=== PATIENT | female | born 1975 | race Caucasian/White ===

== ENCOUNTER → 2020-12-12 10:26 | Outpatient (CLI) | payer BC, SELFPAY ==
--- NOTE | ~2020-12-12 | XR_ITS ---
XR UGIAC wo kub DATE: 12/12/2020 11:26 INDICATION: Gastroesophageal reflux. Epigastric pain. TECHNIQUE: Air-contrast (series 1.7 minutes fluoroscopy time 12.323 DAP 90 images COMPARISON: None FINDINGS: There is mild gastroesophageal reflux. There is normal deglutition and esophageal peristal sis. No stricture, mucosal fold thickening, erosion or ulceration or intraluminal mass lesion of the esophagus, stomach or duodenum. Normal small bowel mucosal pattern. Status post cholecystectomy. IMPRESSION: Mild gastroesophageal reflux Status post cholecystectomy Reviewed, dictated and finalized at [facility]. Reviewed, dictated and finalized at location [facility].
--- NOTE | ~2020-12-12 | MM_ITS ---
EXAMINATION: MM screening josette BI w jos HISTORY: Screening TECHNIQUE: Craniocaudal and mediolateral oblique 3-D tomosynthesis images were obtained and synthetic 2-D images were generated. CAD analysis was submitted and interpreted. COMPARISON: 10/09/2016 BREAST PARENCHYMAL COMPOSITION: The breasts are heterogeneously dense, which may obscure small masses . FINDINGS: There is no evidence of suspicious mass, calcification, or architectural distortion to sugg est malignancy in either breast. There has been no suspicious interval change. IMPRESSION: 1. No mammographic evidence of malignancy. 2. Recommend routine screening mammography in one year. BI-RADS Category 1: Negative Reviewed, dictated and finalized at location A.
== END ==
PROVIDERS: PCP Physician Assistant; Visit Provider Physician Assistant
DX: Z12.31 Encounter for screening mammogram for malignant neoplasm of breast (principal); K21.9 Gastro-esophageal reflux disease without esophagitis; Z90.49 Acquired absence of other specified parts of digestive tract
CPT/HCPCS: 74246; 77063; 77067

== ENCOUNTER → 2021-08-06 10:44 | Outpatient (CLI) | payer BC, SELFPAY ==
--- NOTE | ~2021-08-06 | US_ITS ---
EXAMINATION: XR tibia fibula LT 2V, US soft tissue LE LT DATE: 08/06/2021 11:16 INDICATION: Soft tissue disorder with indention and discoloration at the left lower leg. TECHNIQUE: 1. Anteroposterior and lateral views of the left tibia and fibula were obtained. 2. Grayscale and color Doppler ultrasound images of the region of concern at the lateral left lower l eg were obtained. COMPARISON: None. FINDINGS: Radiograph: Bone alignment is normal. No fracture. Joint spaces are normal. No suspicious lytic or blastic bone l esions. Soft tissues are unremarkable. ULTRASOUND: A couple 2-3 mm anechoic lesions in the subcutaneous fat at the region of concern. On cine images the se appear to be contiguous with several small hypoechoic tubular structures most likely representing vessels although differential would include nerves. No evident internal vascular flow within the cyst ic lesions on color Doppler. The surrounding subcutaneous fat and underlying musculature are unremark able. No abnormal masses or fluid collections identified. IMPRESSION: 1. Nonspecific 2-3 mm anechoic lesions in the subcutaneous fat the region of concern which could repr esent nonspecific cysts, focally dilated veins, either thrombosed or with slow flow indiscernible on Doppler imaging or less likely schwannoma/peripheral nerve sheath tumors. 2. No osseous abnormality. Reviewed, dictated and finalized at location A. IMPRESSION: 1. Nonspecific 2-3 mm anechoic lesions in the subcutaneous fat the region of co ncern which could represent nonspecific cysts, focally dilated veins, either th rombosed or with slow flow indiscernible on Doppler imaging or less likely schw annoma/peripheral nerve sheath tumors. 2. No osseous abnormality.
== END ==
PROVIDERS: PCP Physician Assistant; Visit Provider Physician Assistant
DX: M79.9 Soft tissue disorder, unspecified (principal)
CPT/HCPCS: 73590; 76882

== ENCOUNTER → 2021-08-16 09:02 | Outpatient (CLI) | payer BC, SELFPAY ==
--- NOTE | ~2021-08-16 | MR_ITS ---
EXAMINATION: MR lower leg LT wo/w con DATE: 08/16/2021 10:22 INDICATION: Disorder soft tissues of the left lower leg with soft tissue indentation and discoloratio n. TECHNIQUE: Magnetic resonance imaging (MRI) of the left lower leg was performed without and with 13 m L Multihance intravenous contrast. A marker was placed over the mass. Sequences included axial, sagi ttal and coronal T1-weighted FSE and fluid sensitive FSE STIR, axial T1-weighted FS FSE. Post contras t axial, sagittal and coronal T1-weighted FS FSE were also obtained. The contralateral right lower le g is included on the coronal images. COMPARISON: Ultrasound dated 07/29/2021 FINDINGS: Bones are normal with normal marrow signal throughout. No asymmetric atrophy or abnormal muscle signa l at the bilateral calves. Small region with subtle very fine reticular pattern in the subcutaneous f at immediately underlying the marker indicating the region of concern which is best appreciated on th e T1-weighted images with some associated increased signal on T2-weighted postcontrast images most li gabo representing a tiny vessels in otherwise normal-appearing subcutaneous fat. No soft tissue disha s or more solid-appearing nodular/mass like enhancement. No abnormal fluid collections. IMPRESSION: 1. Nonspecific small region with some increased prominence of tiny vessels in the subcutaneous fat at the region of concern. This could reflect hyperemia related to inflammation of indeterminate etiolog y versus less likely a vascular malformation. No fluid collections or soft tissue nodules/nodular enh ancement to suggest neoplasm. Reviewed, dictated and finalized at location B. IMPRESSION: 1. Nonspecific small region with some increased prominence of tiny vessels in t he subcutaneous fat at the region of concern. This could reflect hyperemia rela constance to inflammation of indeterminate etiology versus less likely a vascular mal formation. No fluid collections or soft tissue nodules/nodular enhancement to s uggest neoplasm.
[2021-08-16 09:53] LABS: Estimated Glomerular Filt Rate > 60
== END ==
PROVIDERS: PCP Physician Assistant; Visit Provider Physician Assistant
DX: M79.9 Soft tissue disorder, unspecified (principal)
CPT/HCPCS: 73720; A9577

== ENCOUNTER 2022-02-25 03:00 | Day surgery (SDC) | payer BC, SELFPAY ==
[2022-02-13 15:00] VITALS: BMI 24.1
--- NOTE | 2022-02-25 10:48 | WPDANESEPPF ---
Anes - Initial Pre Proc Eval Procedure: Operation Date: 02/25/22 13:00 Proposed Procedures p Colonoscopy - Janusz Brice MD Date/Time: 02/25/22 10:48 Surgeon: Janusz Brice MD Pre Op Diagnosis: diarrhea Patient Data Age: 46 Gender: F Height: 1.65 m Weight: 65.9 kg Allergies Allergy/AdvReac Type Severity Reaction Status Date / Time cat dander Allergy Unknown Unknown Verified 02/25/22 11:55 dog dander Allergy Unknown Unknown Verified 02/25/22 11:55 nickel Allergy Unknown Unknown Verified 02/25/22 11:55 pollen extracts Allergy Unknown Unknown Verified 02/25/22 11:55 Home Medications Medication Instructions Recorded Confirmed Type levocetirizine 5 mg tablet (Xyzal) 5 mg PO DAILY 09/17/21 02/13/22 History valacyclovir 1 gram tablet 1,000 mg PO DAILY PRN Cold Sores 02/13/22 02/13/22 History Patient hx anesthesia problems: none Family hx anesthesia problems: none Results Review: All pre-operative results and documents have been reviewed as part of the pre-operative evaluation. [facility] Past Medical History Medical History Asthma Surgical History Surgical History History of appendectomy History of delivery History of cholecystectomy Family History Family History Father Hypertension Grandparent Acute myocardial infarction Cerebrovascular accident Social History Social History Years smoked: 20 Smoking status: Current every day smoker Tobacco type: cigarettes Alcohol intake: current Alcohol use details: 1 bottle of wine per week Substance use: never Substance use type: does not use Living arrangements: with family Spiritual care concerns: No Anes - Eval Final PreProcedure Day of Procedure 02/25/22 10:48 Patient weight: normal Heart: regular rate and rhythm Lungs: clear to auscultation and normal air movement Airway: Mallampati scale class II Neurological: alert and oriented Last oral intake: >/= 8 hours ASA classification: II Emergent: no Anesthetic plan: proceed Anesthesia type and monitoring: general GIVS and standard monitoring Results Review: All pre-operative results and documents have been reviewed as part of the pre-operative evaluation. Informed Consent: The patient's anesthetic plan and its attendant risks and benefits were discussed with the patient/family/POA. Questions were solicited and answers provided to the satisfaction of the patient/family/POA.
[2022-02-25 11:57] VITALS: BP 108/67; PULSE 61; RESP 18; TEMP 36.1; O2SAT 99
[2022-02-25] MEDS: LACTATED RINGERS 1,000 ML 150 ML IV CONT (12:08)
--- NOTE | 2022-02-25 12:18 | PM.HPGS ---
History of Present Illness History of Present Illness Consent: Risks, benefits, and alternatives have been discussed and questions answered. Patient agrees to proceed with procedure. Chief complaint: diarrhea Narrative: Cindy Sierra is a 46 year old female Patient referred for colonoscopy. Patient states she has had diarrhea for many years. Previous workup not available for review. She states that she recently had stool cultures. These are not available for review. Patient denies any blood in her stools. She has no diarrhea at night. She has occasional abdominal cramping that is associated with her diarrhea. She has no fevers. She has had no recent travel. She states stools are loose. Only time she has normal stools is if she eats poorly. She does eat salads rather frequently. Family history noncontributory. Patient has tried no specific medical therapy to help with her diarrhea. Review of Systems Review of Systems: Review of systems noncontributory. [facility] Past Medical History Medical History Asthma Surgical History Surgical History History of appendectomy History of delivery History of cholecystectomy Family History Family History Father Hypertension Grandparent Acute myocardial infarction Cerebrovascular accident Social History Social History Years smoked: 20 Smoking status: Current every day smoker Tobacco type: cigarettes Alcohol intake: current Alcohol use details: 1 bottle of wine per week Substance use: never Substance use type: does not use Living arrangements: with family Spiritual care concerns: No Meds Home Medications and Allergies Home Medications Medication Instructions Recorded Confirmed Type levocetirizine 5 mg tablet (Xyzal) 5 mg PO DAILY 09/17/21 02/13/22 History valacyclovir 1 gram tablet 1,000 mg PO DAILY PRN Cold Sores 02/13/22 02/13/22 History Allergies Allergy/AdvReac Type Severity Reaction Status Date / Time cat dander Allergy Unknown Unknown Verified 02/25/22 11:55 dog dander Allergy Unknown Unknown Verified 02/25/22 11:55 nickel Allergy Unknown Unknown Verified 02/25/22 11:55 pollen extracts Allergy Unknown Unknown Verified 02/25/22 11:55 Vital Signs Vital Signs - 24 hr 02/25/22 11:57 Temperature 97 F L Pulse Rate 61 Respiratory Rate 18 Blood Pressure 108/67 Pulse Oximetry 99 Oxygen Delivery Room Air Exam Narrative: Physical exam reveals patient to be alert. Vital signs stable. HEENT exam is unremarkable. Patient is anicteric. Lungs are clear to auscultation and percussion. Heart is without murmur or extra sounds. Abdomen bowel sounds are present soft nontender with no organomegaly. Digital external rectal exam is normal. Assessment and Plan Assessment and plan (1) Diarrhea: Code(s): R19.7 - Diarrhea, unspecified Status: Acute Assessment and Plan: Patient complains of chronic diarrhea. The etiology is unclear. Not yet totally evaluated. Irritable bowel syndrome it has been suspected. Stool cultures apparently are in progress. Colonoscopy requested. Colonoscopy will be performed today. High-fiber diet advised. Fiber supplementation such as FiberCon 2 tabs p.o. b.i.d. may be of benefit. Further recommendations may be given after endoscopy and review of cultures.
[2022-02-25 13:09] VITALS: BP 100/64; PULSE 57; RESP 21; O2SAT 100
[2022-02-25 13:19] VITALS: BP 85/49; PULSE 59; RESP 22; O2SAT 100
[2022-02-25 13:29] VITALS: BP 106/75; PULSE 57; RESP 15; O2SAT 100
== END 2022-02-25 13:40 | disposition home or self-care (01) ==
PROVIDERS: PCP Physician Assistant; Visit Provider Internal Medicine Gastroenterology
PROC: 0DJD8ZZ Inspection of Lower Intestinal Tract, Via Natural or Artificial Opening Endoscopic (ICD-10-PCS; CPT 45378; principal; 2022-02-25 13:00)
DX: R19.7 Diarrhea, unspecified (principal); K64.8 Other hemorrhoids; J45.909 Unspecified asthma, uncomplicated; Z90.49 Acquired absence of other specified parts of digestive tract; F17.210 Nicotine dependence, cigarettes, uncomplicated
CPT/HCPCS: 45380; 88305; J2704; J7120

== ENCOUNTER → 2023-05-22 15:15 | Outpatient (CLI) | payer BC, SELFPAY ==
--- NOTE | ~2023-05-22 | MM_ITS ---
EXAMINATION: MM screening josette BI w jos HISTORY: Screening mammogram TECHNIQUE: Craniocaudal and mediolateral oblique 3-D tomosynthesis images were obtained and synthetic 2-D images were generated. CAD analysis was submitted and interpreted. COMPARISON: 12/12/2020, 10/09/2016 BREAST PARENCHYMAL COMPOSITION: The breasts are heterogeneously dense, which may obscure small masses . FINDINGS: RIGHT BREAST: No suspicious mass, calcification, or architectural distortion are identified to sugges t malignancy. There has been no suspicious interval change. LEFT BREAST: There is a possible obscured mass in the middle third of the outer breast approximately 4 cm from the nipple. In addition, an asymmetry is present in the far posterior third of the breast j ust below the nipple axis on the mediolateral oblique view. IMPRESSION: 1. Left breast findings as above. 2. Additional mammographic views and possible breast ultrasound are recommended. BI-RADS Category 0: Incomplete: Needs additional imaging evaluation. Reviewed, dictated and finalized at location A. [employer]IC[employer] IMPRESSION: 1. Left breast findings as above. 2. Additional mammographic views and possible breast ultrasound are recommended . BI-RADS Category 0: Incomplete: Needs additional imaging evaluation.
== END ==
PROVIDERS: PCP Physician Assistant; Visit Provider Physician Assistant
DX: Z12.31 Encounter for screening mammogram for malignant neoplasm of breast (principal); R92.8 Other abnormal and inconclusive findings on diagnostic imaging of breast
CPT/HCPCS: 77063; 77067

== ENCOUNTER → 2023-06-09 08:45 | Outpatient (CLI) | payer BC, SELFPAY ==
--- NOTE | ~2023-06-09 | MMUS_ITS ---
EXAMINATION: MM diagnostic josette LT w jos, US breast LT limited HISTORY: Follow-up left breast mass TECHNIQUE: Additional 3-D tomosynthesis images of the left breast were performed and synthetic 2-D im ages were generated. CAD analysis was submitted and interpreted. High resolution Limited left breast ultrasound was performed. COMPARISON: 05/22/2023 BREAST PARENCHYMAL COMPOSITION: The breasts are heterogeneously dense, which may obscure small masses . FINDINGS: MAMMOGRAPHIC FINDINGS: There is a mass in the upper outer quadrant of the left breast, middle third, partially obscured by f ibroglandular tissue. There are no suspicious calcifications or architectural distortion. ULTRASOUND: Limited left breast ultrasound: There are multiple simple cyst of the left breast, largest of which m easures 2.5 cm corresponding to the mass seen on mammography, located at 2:00, 4 cm from the nipple. No suspicious sonographic abnormalities to suggest malignancy. IMPRESSION: 1. No evidence for malignancy in the left breast. Benign findings. 2. Routine yearly screening mammogram and regular clinical breast examination are recommended. BI-RADS Category 2: Benign finding(s). Reviewed, dictated and finalized at location A. [employer]ER IMPRESSION: 1. No evidence for malignancy in the left breast. Benign findings. 2. Routine yearly screening mammogram and regular clinical breast examination a re recommended. BI-RADS Category 2: Benign finding(s).
== END ==
PROVIDERS: PCP Physician Assistant; Visit Provider Physician Assistant
DX: R92.8 Other abnormal and inconclusive findings on diagnostic imaging of breast (principal)
CPT/HCPCS: 76642; 77061; 77065; G0279

== ENCOUNTER 2024-09-27 12:19 | Outpatient (CLI) | payer BC, SELFPAY ==
--- NOTE | ~2024-09-27 | MM_ITS ---
EXAMINATION: MM screening josette BI w jos HISTORY: Screening TECHNIQUE: Craniocaudal and mediolateral oblique 3-D tomosynthesis images were obtained and synthetic 2-D images were generated. CAD analysis was submitted and interpreted. COMPARISON: Comparison to multiple prior studies sequentially, with oldest reviewed study dated 10/09. BREAST PARENCHYMAL COMPOSITION: Dense: The breasts are heterogeneously dense, which may obscure small masses FINDINGS: There are new bilateral breast masses which are of scattered by fibroglandular tissue. Ther e are no suspicious calcifications or architectural distortion. IMPRESSION: 1. New bilateral breast masses. 2. Additional mammographic views and possible breast ultrasound are recommended. BI-RADS Category 0: Incomplete: Needs additional imaging evaluation. Reviewed, dictated and finalized at location B. IMPRESSION: 1. New bilateral breast masses. 2. Additional mammographic views and possible breast ultrasound are recommended . BI-RADS Category 0: Incomplete: Needs additional imaging evaluation.
== END 2024-09-27 12:20 | disposition home or self-care (01) ==
LOC: MICIMG 12:20
PROVIDERS: PCP Physician Assistant; Visit Provider Physician Assistant
DX: Z12.31 Encounter for screening mammogram for malignant neoplasm of breast (principal); R92.8 Other abnormal and inconclusive findings on diagnostic imaging of breast
CPT/HCPCS: 77063; 77067

== ENCOUNTER 2024-10-07 03:24 | Day surgery (SDC) | payer BC, SELFPAY ==
[2024-09-28 15:17] VITALS: BMI 25.0
--- OUTSIDE RECORDS SUMMARY | 2024-10-07 03:27 | XMS_ITS | Data Portability ---
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 Not available 11/27/2023 11:59:56 Plan of Treatment Reminders Order Date Submit Date Provider Last Modified By Organization Details Last Modified Time Details Appointments ANNUAL 30 2025 11:00A M SHEYLA Blanco Not available Not available Not available Lab TSH + free T4, serum 2024 025 [facility], [address], [place], [address], 08/25/2024 11:13:57 lipid panel, serum 2024 025 [facility], [address], [place], [address], 08/25/2024 11:13:58 CMP, serum or plasma 2024 025 [facility], [address], [place], [address], 08/25/2024 11:13:58 CBC w/ auto diff 2024 025 [facility], [address], [place], [address], 08/25/2024 11:13:58 HbA1c (hemoglo bin A1c), blood 2024 025 [email or web address], [address], [address], [place], [address], 08/25/2024 11:13:57 TSH + free T4, serum 2023 024 [email or web address] [employer] [facility], [address], [address], [place], [address], 08/13/2024 10:28:59 lipid panel, serum 2023 024 [email or web address] [facility], [address], [address], [place], [address], 08/13/2024 10:28:38 CMP, serum or plasma 2023 024 [email or web address] [employer] [facility], [address], [address], [place], [address], 08/13/2024 10:28:27 CBC w/ auto diff 2023 024 [email or web address] [facility], [address], [address], [place], [address], 08/13/2024 10:28:18 HbA1c (hemoglo bin A1c), blood 2023 024 [email or web address] [employer] [facility], [address], [address], [place], [address], 08/13/2024 10:28:49 estradio l, serum 2017 018 [email or web address] [employer], [address], [address], [place], [address], 11/11/2017 09:38:53 FSH (follicl e-stimul ating hormone) , serum 2017 018 DARRYN [employer] [facility], [address], [address], [place], [address], 11/07/2017 20:04:23 TSH + free T4, serum 2017 018 [place] [place] [facility], [address], [address], [place], [address], 11/07/2017 20:04:22 pap, IG + HPV, cervical - please use Z11.51 in addition to code above for HPV testing. 2017 018 [place] [facility], [address], [address], [place], [address], 06/20/2017 16:18:39 urinalys is, dipstick 2017 018 [email or web address] In-Office Order, Internal Use Only DO Not Attach Compendium DO Not Attach Compendium, Do Not Delete/merge, [id number] 06/18/2017 12:48:15 urinalys is, dipstick 2016 017 [email or web address] In-Office Order, Internal Use Only DO Not Attach Compendium DO Not Attach Compendium, Do Not Delete/merge, [id number] 10/16/2016 17:09:20 Referral dermatol ogist referral 2023 024 [facility], [address] [facility] , [place], [address], 12/05/2023 19:11:21 Procedures colonosc opy procedur e (PROC) [email or web address] [place] [address] Gastroenterol ogy, [address], [address], [place], [address], 08/12/2024 12:18:05 Surgeries None recorded . Imaging MAMMO, screenin g, digital, bilatera l 2024 025 [facility], [address], [place], [address], 09/27/2024 17:06:58 MAMMO, screenin g, bilatera l 2017 018 [email or web address] [facility], [address], [address] [address], [place], [address], 10/08/2017 16:59:54 US, breast 2016 017 [facility], [address] [place], [address], 10/17/2016 20:20:56 MAMMO, diagnost ic, digital, bilatera l 2016 017 [facility], [address] [place], [address], 10/17/2016 20:20:56 Medication Orders ciclopir ox 8 % topical solution 2024 025 [facility], [address] [place], [place], [id number], 08/12/2024 12:17:54 albutero l sulfate HFA 90 mcg/actu ation aerosol inhaler 2023 024 [email or web address], [address] [place], [place], [id number], 11/27/2023 12:00:04 triamcin olone acetonid e 0.1 % topical cream 2023 025 [email or web address], [address] [place], [place], [id number], 08/12/2024 11:53:12 Lo Loestrin Fe 1 mg-10 mcg (24)/10 mcg (2) tablet 2017 018 [facility] #06202, [address] [place], [place], [id number], 11/27/2023 11:26:16 Lo Loestrin Fe 1 mg-10 mcg (24)/10 mcg (2) tablet 2017 018 [facility], [address] [place], [place], [id number], 11/27/2023 11:26:16 multivit odell tablet 2017 018 [facility], [address] [place], [place], [id number], 11/27/2023 11:26:13 Calcium with Vitamin D 600 mg-10 mcg (400 unit) tablet 2017 018 [facility], [address] [place], [place], [id number], 11/27/2023 11:25:54 Patient TargetsNo targets recorded. 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 ongoing, needs overall skin check and eval lesion b/w breasts Referring Physician: Domenica Titus, Internal Medicine, Encounter Date: 11/27/2023 Results Created Date Observation Date Name Description Value Unit Range Abnormal Flag Note LastModifiedBy Organization Detail LastModifiedTime 06/18/19 18 06/18/2017 urina lysis , dipst ick Leukocytes Negati ve Not Available In-Office Order Internal Use Only DO Not Attach Compendium DO Not Attach Compendium, Do Not Delete/merge, 06/18/2017 11:42:29 06/18/19 18 06/18/2017 urina lysis , dipst ick Nitrite negati ve Not Available In-Office Order Internal Use Only DO Not Attach Compendium DO Not Attach Compendium, Do Not Delete/merge, 06/18/2017 11:42:29 06/18/19 18 06/18/2017 urina lysis , dipst ick Urobilinogen .2 Not Available In-Of fice Order Internal Use Only DO Not Attach Compendium DO Not Attach Compendium, Do Not Delete/merge, 06/18/2017 11:42:29 06/18/19 18 06/18/2017 urina lysis , dipst ick Protein Negati ve Not Available In-Office Order Internal Use Only DO Not Attach Compendium DO Not Attach Compendium, Do Not Delete/merge, 06/18/2017 11:42:29 06/18/19 18 06/18/2017 urina lysis , dipst ick pH 7.0 Not Available In-Office Order Internal Use Only DO Not Attach Compendium DO Not Attach Compendium, Do Not Delete/merge, 06/18/2017 11:42:29 06/18/19 18 06/18/2017 urina lysis , dipst ick Blood Negati ve Not Available In-Office Order Internal Use Only DO Not Attach Compendium DO Not Attach Compendium, Do Not Delete/merge, 06/18/2017 11:42:29 06/18/19 18 06/18/2017 urina lysis , dipst ick Specific [place] 1.015 Not Available In-Off ice Order Internal Use Only DO Not Attach Compendium DO Not Attach Compendium, Do Not Delete/merge, 06/18/2017 11:42:29 06/18/19 18 06/18/2017 urina lysis , dipst ick Ketone Negati ve Not Available In-Office Order Internal Use Only DO Not Attach Compendium DO Not Attach Compendium, Do Not Delete/merge, 06/18/2017 11:42:29 06/18/19 18 06/18/2017 urina lysis , dipst ick Bilirubin Negati ve Not Available In-Office Order Internal Use Only DO Not Attach Compendium DO Not Attach Compendium, Do Not Delete/merge, 06/18/2017 11:42:29 06/18/19 18 06/18/2017 urina lysis , dipst ick Glucose Negati ve Not Available In-Office Order Internal Use Only DO Not Attach Compendium DO Not Attach Compendium, Do Not Delete/merge, 06/18/2017 11:42:29 10/17/19 17 10/16/2016 urina lysis , dipst ick Leukocytes Negati ve Not Available In-Office Order Internal Use Only DO Not Attach Compendium DO Not Attach Compendium, Do Not Delete/merge, 10/16/2016 15:51:38 10/17/19 17 10/16/2016 urina lysis , dipst ick Nitrite negati ve Not Available In-Office Order Internal Use Only DO Not Attach Compendium DO Not Attach Compendium, Do Not Delete/merge, 10/16/2016 15:51:38 10/17/19 17 10/16/2016 urina lysis , dipst ick Urobilinogen .2 Not Available In-Of fice Order Internal Use Only DO Not Attach Compendium DO Not Attach Compendium, Do Not Delete/merge, 10/16/2016 15:51:38 10/17/19 17 10/16/2016 urina lysis , dipst ick Protein Negati ve Not Available In-Office Order Internal Use Only DO Not Attach Compendium DO Not Attach Compendium, Do Not Delete/merge, 10/16/2016 15:51:38 10/17/19 17 10/16/2016 urina lysis , dipst ick pH 5.5 Not Available In-Office Order Internal Use Only DO Not Attach Compendium DO Not Attach Compendium, Do Not Delete/merge, 10/16/2016 15:51:38 10/17/19 17 10/16/2016 urina lysis , dipst ick Blood Non-He molyze d: Trace Not Available In-Office Order Internal Use Only DO Not Attach Compendium DO Not Attach Compendium, Do Not Delete/merge, [id number] 10/16/2016 15:51:38 10/17/19 17 10/16/2016 urina lysis , dipst ick Specific [place] 1.020 Not Available In-Off ice Order Internal Use Only DO Not Attach Compendium DO Not Attach Compendium, Do Not Delete/merge, [id number] 10/16/2016 15:51:38 10/17/19 17 10/16/2016 urina lysis , dipst ick Ketone Negati ve Not Available In-Office Order Internal Use Only DO Not Attach Compendium DO Not Attach Compendium, Do Not Delete/merge, [id number] 10/16/2016 15:51:38 10/17/19 17 10/16/2016 urina lysis , dipst ick Bilirubin Negati ve Not Available In-Office Order Internal Use Only DO Not Attach Compendium DO Not Attach Compendium, Do Not Delete/merge, [id number] 10/16/2016 15:51:38 10/17/19 17 10/16/2016 urina lysis , dipst ick Glucose Negati ve Not Available In-Office Order Internal Use Only DO Not Attach Compendium DO Not Attach Compendium, Do Not Delete/merge, [id number] 10/16/2016 15:51:38 06/18/19 18 06/20/2017 pap, IG + HPV, cervi lori diagnosis: COMMEN T NEGAT CHILANGO FOR INTRA EPITH ELIAL LESIO N AND DANNA [place] . Not Available [facility] ([facility]) [address] [facility], [place], [address], 06/20/2017 16:18:39 06/18/19 18 06/20/2017 pap, IG + HPV, cervi lori specimen adequacy: COMMEN T Satis facto ry for evalu ation . No endoc ervic al compo nent is ident ified . Not Available [facility] ([facility]) [address] [facility], [place], [address], 06/20/2017 16:18:39 06/18/19 18 06/20/2017 pap, IG + HPV, cervi lori clinician provided ICD10: COMMEN T Z01.4 19 Z11.5 1 Not Available [facility] ([facility]) [address] [place], [address], 06/20/2017 16:18:39 06/18/19 18 06/20/2017 pap, IG + HPV, cervi lori performed by: LOKI Brady rs, Cytot ambrosio quezada (ASCP ) Not Available [facility] ([facility]) [address] [place], [address], 06/20/2017 16:18:39 06/18/19 18 06/20/2017 pap, IG + HPV, cervi lori . . Not Available [facility] ([facility]) [address], [place], [address], 06/20/2017 16:18:39 06/18/19 18 06/20/2017 pap, IG + HPV, cervi lori note: LOKI Quezada The Pap smear is a scree candy test desig miriam to aid in the detec tion of halina ligna nt and malig nant condi tions of the uteri ne cervi x. It is not a diagn ostic proce dure and shoul d not be used as the sole means of detec ting cervi lori cance r. Both false -posi tive and false -nega tive repor ts do occur . Not Available [facility] ([facility]) [address] [place], [address], 06/20/2017 16:18:39 06/18/19 18 06/20/2017 pap, IG + HPV, cervi lori test methodology: TNP The Thin Prep( R) Image r was unabl e to read this speci men. There fore a bartolo loco revie w was perfo rmed. Not Available [facility] ([facility]) [address], [place], [address], 06/20/2017 16:18:39 06/18/19 18 06/20/2017 pap, IG + HPV, cervi lori HPV aptima NEGATI VE negati ve This test detec ts fourt een high- risk HPV types (16/1 8/31/ 33/35 /39/4 5/ 51/52 /56/5 8/59/ 66/68 ) witho ut lose krystalti ation . Not Available [facility] ([facility]) [address] [facility], [place], [address], 06/20/2017 16:18:39 10/29/19 18 11/07/2017 TSH + free T4, serum TSH 0.99 mIU/L normal Refer ence Range > or = 20 Years 0.40- 4.50 Pregn yeimi Range s First trime ster 0.26- 2.66 Secon d trime ster 0.55- 2.73 Third trime ster 0.43- 2.91 Not Available [facility] [address] [address] [place], [address], 11/07/2017 20:04:22 10/29/19 18 11/07/2017 TSH + free T4, serum T4, free 1.1 NG/dL 0.8-1. 8 normal Not Available [employer] [address] [address] [place], [address], 11/07/2017 20:04:22 10/29/19 18 11/07/2017 estra diol (E2), free, serum estradiol, free 2.44 pg/mL FEMAL E REFER ENCE RANGE S FOR ESTRA DIOL, FREE: Folli cular Stage : 0.43- 5.03 pg/mL Mid-c ycle Stage : 0.72- 5.89 pg/mL Lutea l Stage : 0.40- 5.55 pg/mL Postm enopa usal: < or = 0.38 pg/mL Not Available [facility] [address] [address] [place], [address], 11/07/2017 20:04:23 10/29/19 18 11/07/2017 estra diol (E2), free, serum estradiol 161 pg/mL FEMAL E REFER ENCE RANGE S FOR ESTRA DIOL: Folli cular Stage : 39-37 5 pg/mL Mid-c ycle Stage : 94-76 2 pg/mL Lutea l Stage : 48-44 0 pg/mL Postm enopa usal: < or = 10 pg/mL This test was devel juan daniel and its oscar tical perfo rmanc e rc cteri stics have been deter mined by [facility] Nikolas ibarra . It has not been clear ed or appro renee by FDA. This assay has been valid ated pursu ant to the CLIA regul ation s and is used for clini lori purpo ses. Not Available [employer] [facility] [address] [place], [address], 11/07/2017 20:04:23 10/29/19 18 11/07/2017 FSH (foll icle- stimu latin g hormo ne), serum FSH 10.4 mIU/m L normal Refer ence Range Folli cular Phase 2.5-1 0.2 Mid-c ycle Peak 3.1-1 7.7 Lutea l Phase 1.5- 9.1 Postm enopa usal 23.0- 116.3 Not Available [facility] [facility] [address] [place], [address], 11/07/2017 20:04:23 02/07/20 22 02/12/2022 Free T4 and TSH panel - Serum or Plasm a thyrotropin [units/volum e] in serum or plasma TSH Not Available Not Available 06:21:27 02/07/20 22 02/12/2022 Free T4 and TSH panel - Serum or Plasm a thyroxine (T4) free [mass/volume ] in serum or plasma T4, free Not Available Not Available 08/12/2024 06:21:27 02/07/20 22 02/12/2022 Lipid 1996 panel - Serum or Plasm a cholesterol [mass/volume ] in serum or plasma eladia stero l, total Not Available Not Available 08/12/2024 06:21:27 02/07/20 22 02/12/2022 Lipid 1996 panel - Serum or Plasm a cholesterol in HDL [mass/volume ] in serum or plasma HDL eladia stero l Not Available Not Available 08/12/2024 06:21:27 02/07/20 22 02/12/2022 Lipid 1996 panel - Serum or Plasm a triglyceride [mass/volume ] in serum or plasma trigl yceri carl Not Available Not Available 08/12/2024 06:21:27 02/07/20 22 02/12/2022 Lipid 1996 panel - Serum or Plasm a cholesterol in LDL [mass/volume ] in serum or plasma by calculation LDL-c holes terol Not Available Not Available 08/12/2024 06:21:27 02/07/20 22 02/12/2022 Lipid 1996 panel - Serum or Plasm a cholesterol. total/choles terol in HDL [mass ratio] in serum or plasma chol/ HDLC ratio Not Available Not Available 08/12/2024 06:21:27 02/07/20 22 02/12/2022 Lipid 1996 panel - Serum or Plasm a cholesterol non HDL [mass/volume ] in serum or plasma non HDL eladia stero l Not Available Not Available 08/12/2024 06:21:27 02/07/20 22 02/12/2022 Compr ehens chilango metab olic 1999 panel - Serum or Plasm a glucose [mass/volume ] in serum or plasma gluco se Not Available Not Available 08/12/2024 06:21:27 02/07/20 22 02/12/2022 Compr ehens chilango metab olic 2000 panel - Serum or Plasm a urea nitrogen [mass/volume ] in serum or plasma urea nitro gen (BUN) Not Available Not Available 08/12/2024 06:21:27 02/07/20 22 02/12/2022 Compr ehens chilango metab olic 1999 panel - Serum or Plasm a creatinine [mass/volume ] in serum or plasma creat inine Not Available Not Available 08/12/2024 06:21:27 02/07/20 22 02/12/2022 Compr ehens chilango metab olic 2000 panel - Serum or Plasm a glomerular filtration rate [volume rate/area] in serum, plasma or blood by creatinine-b ased formula (CKD-epi 2020)/1.73 sq M eGFR Not Available Not Available 07/2024 06:21:27 09/28/02/12/2022 Compr ehens chilagno Project Manager olic 1999 panel - Serum or Plasm a urea nitrogen/cre atinine [mass ratio] in serum or plasma not applic able BUN/c reati nine ratio Not Available Not Available 08/12/2024 06:21:27 02/07/20 22 02/12/2022 [facility] [employer] chil[employer] Project Manager olic 1999 panel - Serum or Plasm a sodium [moles/volum e] in serum or plasma sodiu m Not Available Not Available 08/12/2024 06:21:27 02/07/20 22 02/12/2022 [facility] [employer] chilango Project Manager olic 1999 panel - Serum or Plasm a potassium [moles/volum e] in serum or plasma potas sium Not Available Not Available 08/12/2024 06:21:27 02/07/20 22 02/12/2022 [facility] [employer] chilango Project Manager olic 1999 panel - Serum or Plasm a chloride [moles/volum e] in serum or plasma chlor lalo Not Available Not Available 08/12/2024 06:21:27 02/07/20 22 02/12/2022 [facility] [employer]il[employer] Project Manager olic 1999 panel - Serum or Plasm a carbon dioxide, total [moles/volum e] in serum or plasma carbo n dioxi de Not Available Not Available 08/12/2024 06:21:27 02/07/20 22 02/12/2022 [facility] [employer] Project Manager olic 1999 panel - Serum or Plasm a calcium [mass/volume ] in serum or plasma calci um Not Available Not Available 08/12/2024 06:21:27 02/07/20 22 02/12/2022 [facility] [employer] Project Manager olic 1999 panel - Serum or Plasm a protein [mass/volume ] in serum or plasma prote in, total Not Available Not Available 08/12/2024 06:21:27 02/07/20 22 02/12/2022 Compr [employer] Project Manager olic 1999 panel - Serum or Plasm a albumin [mass/volume ] in serum or plasma album in Not Available Not Available 08/12/2024 06:21:27 02/07/20 22 02/12/2022 [facility] [employer] Project Manager olic 1999 panel - Serum or Plasm a globulin [mass/volume ] in serum by calculation globu rosemary Not Available Not Available 08/12/2024 06:21:27 02/07/20 22 02/12/2022 Compr ehens chilango metab olic 1999 panel - Serum or Plasm a albumin/glob ulin [mass ratio] in serum or plasma album in/gl obuli n ratio Not Available Not Available 08/12/2024 06:21:27 02/07/20 22 02/12/2022 Compr ehens chilango metab olic 1999 panel - Serum or Plasm a bilirubin.to ronit [mass/volume ] in serum or plasma bilir ubin, total Not Available Not Available 08/12/2024 06:21:27 02/07/20 22 02/12/2022 Compr ehens chilango metab olic 1999 panel - Serum or Plasm a alkaline phosphatase [enzymatic activity/vol ume] in serum or plasma alkal ine phosp hatas e Not Available Not Available 08/12/2024 06:21:27 02/07/20 22 02/12/2022 Compr ehens chilango metab olic 1999 panel - Serum or Plasm a aspartate aminotransfe rase [enzymatic activity/vol ume] in serum or plasma AST Not Available Not Available 07/2024 06:21:27 02/07/20 22 02/12/2022 Compr ehens chilango metab olic 1999 panel - Serum or Plasm a alanine aminotransfe rase [enzymatic activity/vol ume] in serum or plasma ALT Not Available Not Available 07/2024 06:21:27 02/07/20 22 02/12/2022 Hemog lobin A1c/H emogl obin. total in Blood hemoglobin A1C/hemoglob in.total in blood hemog lobin A1C Not Available Not Available 08/12/2024 06:21:27 02/07/20 22 02/12/2022 Calpr otect in [Mass /mass ] in Stool calprotectin [mass/mass] in stool calpr otect in, stool Not Available Not Available 08/12/2024 06:21:26 02/07/20 22 02/12/2022 CBC W Auto Diffe ignacio al panel - Blood leukocytes [#/volume] in blood by automated count white blood cell count Not Available Not Available 08/12/2024 06:21:26 02/07/20 22 02/12/2022 CBC W Auto Diffe renti al panel - Blood erythrocytes [#/volume] in blood by automated count red blood cell count Not Available Not Available 08/12/2024 06:21:26 02/07/20 22 02/12/2022 CBC W Auto Diffe renti al panel - Blood hemoglobin [mass/volume ] in blood hemog lobin Not Available Not Available 08/12/2024 06:21:26 02/07/20 22 02/12/2022 CBC W Auto Diffe renti al panel - Blood hematocrit [volume fraction] of blood by automated count hemat ocrit Not Available Not Available 08/12/2024 06:21:26 02/07/20 22 02/12/2022 CBC W Auto Diffe renti al panel - Blood MCV [entitic mean volume] in red blood cells by automated count MCV Not Available Not Available 07/2024 06:21:26 02/07/20 22 02/12/2022 CBC W Auto Diffe renti al panel - Blood MCH [entitic mass] by automated count high MCH Not Available Not Available 07/2024 06:21:26 02/07/20 22 02/12/2022 CBC W Auto Diffe renti al panel - Blood MCHC [entitic mass/volume] in red blood cells by automated count MCHC Not Available Not Available 07/2024 06:21:26 02/07/20 22 02/12/2022 CBC W Auto Diffe renti al panel - Blood erythrocyte [distwidth] in red blood cells by automated count RDW Not Available Not Available 07/2024 06:21:26 02/07/20 22 02/12/2022 CBC W Auto Diffe renti al panel - Blood platelets [#/volume] in blood by automated count plate let count Not Available Not Available 08/12/2024 06:21:26 02/07/20 22 02/12/2022 CBC W Auto Diffe renti al panel - Blood platelet [entitic mean volume] in blood by nola MPV Not Available Not Available 0 08/12/2024 06:21:26 02/07/20 22 02/12/2022 CBC W Auto Diffe renti al panel - Blood neutrophils [#/volume] in blood by automated count absol eek neutr ophil s Not Available Not Available 08/12/2024 06:21:26 02/07/20 22 02/12/2022 CBC W Auto Diffe renti al panel - Blood lymphocytes [#/volume] in blood by automated count absol eek lymph ocyte s Not Available Not Available 08/12/2024 06:21:26 02/07/20 22 02/12/2022 CBC W Auto Diffe renti al panel - Blood monocytes [#/volume] in blood by automated count absol eek monoc ytes Not Available Not Available 08/12/2024 06:21:26 02/07/20 22 02/12/2022 CBC W Auto Diffe renti al panel - Blood eosinophils [#/volume] in blood by automated count high absol eek eosin ophil s Not Available Not Available 08/12/2024 06:21:26 02/07/20 22 02/12/2022 CBC W Auto Diffe renti al panel - Blood basophils [#/volume] in blood by automated count absol eek basop hils Not Available Not Available 08/12/2024 06:21:26 02/07/20 22 02/12/2022 CBC W Auto Diffe renti al panel - Blood neutrophils/ leukocytes in blood by automated count neutr ophil s Not Available Not Available 08/12/2024 06:21:26 02/07/20 22 02/12/2022 CBC W Auto Diffe renti al panel - Blood lymphocytes/ leukocytes in blood by automated count lymph ocyte s Not Available Not Available 08/12/2024 06:21:26 02/07/20 22 02/12/2022 CBC W Auto Diffe renti al panel - Blood monocytes/le ukocytes in blood by automated count monoc ytes Not Available Not Available 08/12/2024 06:21:26 02/07/20 22 02/12/2022 CBC W Auto Diffe renti al panel - Blood eosinophils/ leukocytes in blood by automated count eosin ophil s Not Available Not Available 08/12/2024 06:21:26 02/07/20 22 02/12/2022 CBC W Auto Diffe renti al panel - Blood basophils/le ukocytes in blood by automated count basop hils Not Available Not Available 08/12/2024 06:21:26 02/07/20 22 02/12/2022 Giard ia lambl ia+Cr yptos porid ium sp Ag [Pres ence] in Stool cryptosporid ium sp Ag [presence] in stool by immunoassay crypt ospor idium antig en, EIA Not Available Not Available 08/12/2024 06:21:26 02/07/20 22 02/12/2022 Giard ia lambl ia+Cr yptos porid ium sp Ag [Pres ence] in Stool giardia lamblia Ag [presence] in stool by immunoassay giard ia Ag, EIA, stool Not Available Not Available 08/12/2024 06:21:26 02/07/20 22 02/12/2022 Salmo marianela and Shige lla sp ident ified in Stool by Organ ism speci fic cultu re salmonella and shigella sp identified in stool by organism specific culture salmo marianela and shige lla, cultu re Not Available Not Available 08/12/2024 06:21:26 02/07/20 22 02/12/2022 Esche edyta a coli O157: H7 [Pres ence] in Stool by Organ ism speci fic cultu re escherichia coli O157:H7 [presence] in stool by organism specific culture esche edyta a coli O157, cultu re Not Available Not Available 08/12/2024 06:21:26 02/07/20 22 02/12/2022 Ova and sharita ites ident ified in Stool by Yue ntrat ion ova and parasites identified in stool by trichrome stain ova and sharita ites, conc and perm smear Not Available Not Available 08/12/2024 06:21:26 07/09/19 23 07/10/2022 Folat e+Cya nocob zenaida n [Inte rpret ation ] in Serum or Blood cobalamin (vitamin B12) [mass/volume ] in serum or plasma vitam in B12 Not Available Not Available 08/12/2024 06:21:27 07/09/19 23 07/10/2022 Folat e+Cya nocob zenaida n [Inte rpret ation ] in Serum or Blood folate [mass/volume ] in serum or plasma folat e, serum Not Available Not Available 08/12/2024 06:21:27 07/09/19 23 07/10/2022 Liam tin [Mass /volu me] in Serum or Plasm a ferritin [mass/volume ] in serum or plasma liam tin Not Available Not Available 08/12/2024 06:21:27 07/09/19 23 07/10/2022 Iron and Iron dorene ng capac ity panel - Serum or Plasm a iron [mass/volume ] in serum or plasma high iron, total Not Available Not Available 08/12/2024 06:21:27 07/09/19 23 07/10/2022 Iron and Iron dorene ng capac ity panel - Serum or Plasm a iron binding capacity [mass/volume ] in serum or plasma iron dorene ng capac ity Not Available Not Available 08/12/2024 06:21:27 07/09/19 23 07/10/2022 Iron and Iron dorene ng capac ity panel - Serum or Plasm a iron saturation [mass fraction] in serum or plasma high % satur ation Not Available Not Available 08/12/2024 06:21:27 07/09/19 23 07/10/2022 CBC W Auto Diffe renti al panel - Blood leukocytes [#/volume] in blood by automated count white blood cell count Not Available Not Available 08/12/2024 06:21:27 07/09/19 23 07/10/2022 CBC W Auto Diffe renti al panel - Blood erythrocytes [#/volume] in blood by automated count red blood cell count Not Available Not Available 08/12/2024 06:21:27 07/09/19 23 07/10/2022 CBC W Auto Diffe renti al panel - Blood hemoglobin [mass/volume ] in blood hemog lobin Not Available Not Available 08/12/2024 06:21:27 07/09/19 23 07/10/2022 CBC W Auto Diffe renti al panel - Blood hematocrit [volume fraction] of blood by automated count hemat ocrit Not Available Not Available 08/12/2024 06:21:27 07/09/19 23 07/10/2022 CBC W Auto Diffe renti al panel - Blood MCV [entitic mean volume] in red blood cells by automated count MCV Not Available Not Available 07/2024 06:21:27 07/09/19 23 07/10/2022 CBC W Auto Diffe renti al panel - Blood MCH [entitic mass] by automated count MCH Not Available Not Available 07/2024 06:21:27 07/09/19 23 07/10/2022 CBC W Auto Diffe renti al panel - Blood MCHC [entitic mass/volume] in red blood cells by automated count MCHC Not Available Not Available 07/2024 06:21:27 07/09/19 23 07/10/2022 CBC W Auto Diffe renti al panel - Blood erythrocyte [distwidth] in red blood cells by automated count RDW Not Available Not Available 07/2024 06:21:27 07/09/19 23 07/10/2022 CBC W Auto Diffe renti al panel - Blood platelets [#/volume] in blood by automated count plate let count Not Available Not Available 08/12/2024 06:21:27 07/09/19 23 07/10/2022 CBC W Auto Diffe renti al panel - Blood platelet [entitic mean volume] in blood by nola MPV Not Available Not Available 0 08/12/2024 06:21:27 07/09/19 23 07/10/2022 CBC W Auto Diffe renti al panel - Blood neutrophils [#/volume] in blood by automated count absol eek neutr ophil s Not Available Not Available 08/12/2024 06:21:27 07/09/19 23 07/10/2022 CBC W Auto Diffe renti al panel - Blood lymphocytes [#/volume] in blood by automated count absol eek lymph ocyte s Not Available Not Available 08/12/2024 06:21:27 07/09/19 23 07/10/2022 CBC W Auto Diffe renti al panel - Blood monocytes [#/volume] in blood by automated count absol eek monoc ytes Not Available Not Available 08/12/2024 06:21:27 07/09/19 23 07/10/2022 CBC W Auto Diffe renti al panel - Blood eosinophils [#/volume] in blood by automated count absol eek eosin ophil s Not Available Not Available 08/12/2024 06:21:27 07/09/19 23 07/10/2022 CBC W Auto Diffe renti al panel - Blood basophils [#/volume] in blood by automated count absol eek basop hils Not Available Not Available 08/12/2024 06:21:27 07/09/19 23 07/10/2022 CBC W Auto Diffe renti al panel - Blood neutrophils/ leukocytes in blood by automated count neutr ophil s Not Available Not Available 08/12/2024 06:21:27 07/09/19 23 07/10/2022 CBC W Auto Diffe renti al panel - Blood lymphocytes/ leukocytes in blood by automated count lymph ocyte s Not Available Not Available 08/12/2024 06:21:27 07/09/19 23 07/10/2022 CBC W Auto Diffe renti al panel - Blood monocytes/le ukocytes in blood by automated count monoc ytes Not Available Not Available 08/12/2024 06:21:27 07/09/19 23 07/10/2022 CBC W Auto Diffe renti al panel - Blood eosinophils/ leukocytes in blood by automated count eosin ophil s Not Available Not Available 08/12/2024 06:21:27 07/09/19 23 07/10/2022 CBC W Auto Diffe renti al panel - Blood basophils/le ukocytes in blood by automated count basop hils Not Available Not Available 08/12/2024 06:21:27 07/09/19 23 07/10/2022 Thyro tropi n [Unit s/vol ume] in Serum or Plasm a thyrotropin [units/volum e] in serum or plasma TSH w/ref rehana to FT4 Not Available Not Available 08/12/2024 06:21:27 07/09/19 23 07/10/2022 Compr ehens chilango metab olic 1999 panel - Serum or Plasm a glucose [mass/volume ] in serum or plasma gluco se Not Available Not Available 08/12/2024 06:21:27 07/09/19 23 07/10/2022 Compr ehens chilango metab olic 2000 panel - Serum or Plasm a urea nitrogen [mass/volume ] in serum or plasma urea nitro gen (BUN) Not Available Not Available 08/12/2024 06:21:27 07/09/19 23 07/10/2022 Compr ehens chilango metab olic 2000 panel - Serum or Plasm a creatinine [mass/volume ] in serum or plasma creat inine Not Available Not Available 08/12/2024 06:21:27 07/09/19 23 07/10/2022 Compr Scanbuyens [place] metab olic 1999 panel - Serum or Plasm a glomerular filtration rate [volume rate/area] in serum, plasma or blood by creatinine-b ased formula (CKD-epi 2020)/1.73 sq M eGFR Not Available Not Available 07/2024 06:21:27 07/09/19 23 07/10/2022 Compr ehens chil[place] metab olic 1999 panel - Serum or Plasm a urea nitrogen/cre atinine [mass ratio] in serum or plasma NOT APPLIC ABLE BUN/c reati nine ratio Not Available Not Available 08/12/2024 06:21:27 07/09/19 23 07/10/2022 Compr Scanbuyens [place] metab olic 1999 panel - Serum or Plasm a sodium [moles/volum e] in serum or plasma sodiu m Not Available Not Available 08/12/2024 06:21:27 07/09/19 23 07/10/2022 Compr Scanbuyens [place] metab olic 1999 panel - Serum or Plasm a potassium [moles/volum e] in serum or plasma potas sium Not Available Not Available 08/12/2024 06:21:27 07/09/19 23 07/10/2022 Compr Scanbuyens [place] metab olic 1999 panel - Serum or Plasm a chloride [moles/volum e] in serum or plasma chlor lalo Not Available Not Available 08/12/2024 06:21:27 07/09/19 23 07/10/2022 Compr [employer] [place] Project Manager olic 1999 panel - Serum or Plasm a carbon dioxide, total [moles/volum e] in serum or plasma carbo n dioxi de Not Available Not Available 08/12/2024 06:21:27 07/09/19 23 07/10/2022 Compr [employer] [place] Project Manager olic 1999 panel - Serum or Plasm a calcium [mass/volume ] in serum or plasma calci um Not Available Not Available 08/12/2024 06:21:27 07/09/19 23 07/10/2022 Compr [employer] [place] Project Manager olic 1999 panel - Serum or Plasm a protein [mass/volume ] in serum or plasma prote in, total Not Available Not Available 08/12/2024 06:21:27 07/09/19 23 07/10/2022 Compr ehens chilango metab olic 1999 panel - Serum or Plasm a albumin [mass/volume ] in serum or plasma album in Not Available Not Available 08/12/2024 06:21:27 07/09/19 23 07/10/2022 Compr ehens chilango metab olic 1999 panel - Serum or Plasm a globulin [mass/volume ] in serum by calculation globu rosemary Not Available Not Available 08/12/2024 06:21:27 07/09/19 23 07/10/2022 Compr ehens chilango metab olic 1999 panel - Serum or Plasm a albumin/glob ulin [mass ratio] in serum or plasma album in/gl obuli n ratio Not Available Not Available 08/12/2024 06:21:27 07/09/19 23 07/10/2022 Compr ehens chilango metab olic 1999 panel - Serum or Plasm a bilirubin.to ronit [mass/volume ] in serum or plasma bilir ubin, total Not Available Not Available 08/12/2024 06:21:27 07/09/19 23 07/10/2022 Compr ehens chilango metab olic 1999 panel - Serum or Plasm a alkaline phosphatase [enzymatic activity/vol ume] in serum or plasma alkal ine phosp hatas e Not Available Not Available 08/12/2024 06:21:27 07/09/19 23 07/10/2022 Compr ehens chilango metab olic 1999 panel - Serum or Plasm a aspartate aminotransfe rase [enzymatic activity/vol ume] in serum or plasma AST Not Available Not Available 07/2024 06:21:27 07/09/19 23 07/10/2022 Compr ehens chilango metab olic 2000 panel - Serum or Plasm a alanine aminotransfe rase [enzymatic activity/vol ume] in serum or plasma ALT Not Available Not Available 07/2024 06:21:27 10/25/19 17 10/09/2016 berny DUARTE bilat eral No observ ation record ed. [email or web address] Not Available 06/18 12:13:33 09/28/19 25 09/27/2024 MAMMO , scree candy, digit al, bilat eral No observ ation record ed. [facility] [address], [place], [address], 09/27/2024 17:06:58 09/29/19 25 09/27/2024 MAMMO , scree candy, digit al, bilat eral No observ ation record ed. [facility] [address], [place], [address], 09/28/2024 08:16:00 Result Notes None recorded. Problems Name Problem SNOMED Code Status Onset Date Resolution Date Notes Provider Name and Address Organization Details Recorded Time Deliveries by [id number] Active 2017 Janusz DimasYaslolly johnson, [place] - [facility] 8 12:45:12 Female sterilizati on Active 2017 Janusz johnson, [place] - [facility] 8 12:45:25 Abnormal uterine bleeding 2581408425101 0 Active 2017 Janusz DimasYaslolly johnson, [place] - [facility] 8 13:03:57 Asthma 277869660 Active 2023 SHEYLA Blanco Attn: Aleks guy,[address] [place], [address], [place] - [facility] 4 20:54:53 Body mass index 25-29 - overweight 550038148 Active 2023 SHEYLA Blanco Attn: Aleks guy,[address] [place], [address], [place] - [facility] 4 20:55:10 Overweight 576651564 Active 2024 SHEYLA Blanco Attn: Aleks guy,[address] [place], [address], [place] - [facility] 5 11:59:42 Family history of polyp of colon 725547650 Active 2024 SHEYLA Blanco Attn: Aleks guy,[address] [place], [address], [facility] - [facility] 5 12:04:58 Long-term drug therapy Active 2024 SHEYLA Blanco Attn: Aleks guy,[address] [facility], [place], [address], [facility] - [facility]AC[facility] BY [facility] 5 12:04:59 Onychomycos is of toenails 750786221 Active 2024 SHEYLA Blanco Attn: Aleks guy,[address] [facility], [place], [address], [facility] - [facility] 5 13:35:16 Problem Notes None recorded. Procedures Surgical History Date Name Laterality Status Provider Name and Address Organization Details Recorded Time 01/11/20 14 Date of Last Pap Smear completed Angelina Malagon MA [facility] 06/18/2017 11:33:30 01/31/20 12 Caesarean Section completed Angelina Malagon MA [facility] 06/18/2017 11:39:37 01/31/20 12 Tubal Ligation completed Angelina Malagon MA [facility] 06/18/2017 11:39:59 05/12/19 11 Appendectomy completed Angelina Malagon MA [facility] 06/18/2017 11:40:19 01/05/20 10 Caesarean Section completed Angelina Malagon MA [facility] 06/18/2017 11:39:49 05/12/19 03 Cholecystectomy completed Angelina Malagon MA [facility] 06/18/2017 11:40:43 Imaging Results None recorded. Procedure Notes None recorded. Medical Equipment None Reported. Allergies No known drug allergies Medications Name Sig Start Date Stop Date Status Note LastModified by Organization Details LastModified Time multivitami n tablet TAKE 1 TABLET BY MOUTH EVERY DAY 11/26 completed Not Available Not Available Not Available azithromyci n 250 mg tablet TAKE 2 TABLETS (500 MG) BY ORAL ROUTE ONCE DAILY FOR 1 DAY THEN 1 TABLET (250 MG) BY ORAL ROUTE ONCE DAILY FOR 4 DAYS active Not Available Not Available No t Available fluconazole 150 mg tablet TAKE 1 TABLET BY MOUTH FOR 1 DAY active Not Available Not Available No t Available valacyclovi r 1 gram tablet Take 2 tablets by mouth every 12 hours for 1 day as needed for flare up active Not Available Not Available No t Available prednisone 20 mg tablet 11/26 completed Not Available Not Available Not Available sulfamethox azole 800 mg-trimetho prim 160 mg tablet 11/26 completed Not Available Not Available Not Available triamcinolo ne acetonide 0.1 % topical cream APPLY THIN LAYER TOPICALLY TO THE AFFECTED AREA TWICE DAILY FOR 7 TO 10 DAYS 08/12 completed Not Available Not Available Not Available cyproheptad ine 4 mg tablet 11/26 completed Not Available Not Available Not Available ciclopirox 8 % topical solution APPLY TO THE AFFECTED AREA(S) BY TOPICAL ROUTE ONCE DAILY PREFERABL Y AT BEDTIME OR 8 HOURS BEFORE WASHING active Not Available Not Available No t Available amoxicillin 875 mg tablet Take 1 tablet every 12 hours by oral route. 2024 active Not Available Not Available Not Avai lable montelukast 10 mg tablet 11/26 completed Not Available Not Available Not Available albuterol sulfate HFA 90 mcg/actuati on aerosol inhaler INHALE 2 PUFFS BY MOUTH EVERY 4 TO 6 HOURS NEEDED active Not Available Not Available No t Available amoxicillin 875 mg-potassiu m clavulanate 125 mg tablet TAKE 1 TABLET BY MOUTH EVERY 12 HOURS 11/26 completed Not Available Not Available Not Available Daily Vitamin Formula 11/26 completed Not Available Not Available Not Available calcium 600 mg (as carbonate)- vitamin D3 10 mcg (400 unit) tablet TAKE 1 TABLET BY MOUTH TWICE DAILY 11/26 completed Not Available Not Available Not Available levocetiriz ine 5 mg tablet 11/26 completed Not Available Not Available Not Available Lo Loestrin Fe 1 mg-10 mcg (24)/10 mcg (2) tablet Take 1 tablet every day by oral route. 11/26 completed Not Available Not Available Not Available Chantix Starting Month Box 0.5 mg (11)-1 mg (42) tablets in dose pack 11/26 completed Not Available Not Available Not Available Vitals Date Recorded Body height Body mass index (BMI) Body weight Systolic blood pressure Diastolic blood pressure Provider Name and Address Organization Details Last Updated DateTime 06/18/2017 165.1 cm 24.8 kg/m2 91048.26 g 96 mm[Hg] 58 mm[Hg] Angelina Malagon MA [facility] 8 11:47:37 Date Recorded Respiratory rate Systolic blood pressure Diastolic blood pressure Provider Name and Address Organization Details Last Updated DateTime 08/12/2024 16 /min 110 mm[Hg] 80 mm[Hg] SHEYLA Blanco Attn: Accounting, [address] [place], [address], [facility] 08/12/2024 12:18:32 Date Recorded Body height Body mass index (BMI) Body weight Heart rate Oxygen saturation Oxygen saturation in Arterial blood by Pulse oximetry Systolic blood pressure Diastolic blood pressure Provider Name and Address Organization Details Last Updated DateTime 165.1 cm 25.5 kg/m2 37891.6 3 g 62 /min 98 % 98 % 108 mm[Hg] 82 mm[Hg] Ana Paula Byrd MA [facility] 11:55:15 Date Recorded Body weight Systolic blood pressure Diastolic blood pressure Provider Name and Address Organization Details Last Updated DateTime 10/15/2016 30506.89 g 110 mm[Hg] 78 mm[Hg] Radhika Blanco MA [facility] 10/16/2016 15:49:29 Date Recorded Body height Body mass index (BMI) Body weight Systolic blood pressure Diastolic blood pressure Provider Name and Address Organization Details Last Updated DateTime 10/28/2017 165.1 cm 24.6 kg/m2 17504.67 g 100 mm[Hg] 60 mm[Hg] Susana Murphy MA [facility] 8 12:01:14 Date Recorded Systolic blood pressure Diastolic blood pressure Provider Name and Address Organization Details Last Updated DateTime 11/27/2023 120 mm[Hg] 80 mm[Hg] SHEYLA Blanco Attn: Accounting,[address] [place], [address], [facility] 11/27/2023 11:57:36 Date Recorded Body height Respiratory rate Body mass index (BMI) Body weight Oxygen saturation Oxygen saturation in Arterial blood by Pulse oximetry Heart rate Systolic blood pressure Diastolic blood pressure Provider Name and Address Organization Details Last Updated DateTime 4 165.1 cm 18 /min 26.5 kg/m2 94707.1 9 g 98 % 98 % 62 /min 120 mm[Hg] 80 mm[Hg] Ana Paula Byrd MA [facility] 4 11:30:55 Social History Question Answer Notes LastModified by Organizat ion Details LastModified Time Tobacco Smoking Status Current Some Day Smoker hasn't for about 9 days Ana Paula Byrd MA null, [place] - [facility] 08/12/2024 11:52:35 Do You Have An Advance Directive? No [email or web address] Information not available 06/18/2017 Are You Blind Or Do You Have Difficulty Seeing? No Glasses Information not available 11/27/2023 Is Blood Transfusion Acceptable In An Emergency? Yes Information not available 06/18/2017 What Is Your Level Of Caffeine Consumption? Moderate Coffee Daily [email or web address] Information not available 06/18/2017 How Much Tobacco Do You Chew? None [email or web address] Information not available 06/18/2017 In The 14 Days Before Symptom Onset, Have You Had Close Contact With A Laboratory-confir med COVID-19 While That Case Was Ill? No Information not available 11/27/2023 In The 14 Days Before Symptom Onset, Have You Had Close Contact With A Person Who Is Under Investigation For COVID-19 While That Person Was Ill? No Information not available 11/27/2023 Have You Been To An Area Known To Be High Risk For COVID-19? No Information not available 11/27/2023 Are You Deaf Or Do You Have Serious Difficulty Hearing? No Information not available 11/27/2023 What Type Of Diet Are You Following? REGULAR [email or web address] Information not available 06/18/2017 Which Illicit Or Recreational Drugs Have You Used? Denies [email or web address] Information not available 06/18/2017 Education 2 Year College [email or web address] Information not available 06/18/2017 Live Alone Or With Others? With Others [email or web address] Information not available 06/18/2017 What Was The Date Of Your Most Recent Tobacco Screening? 08/12/2024 Information not available 08/12/2024 How Many Children Do You Have? 2 [email or web address] Information not available 06/18/2017 Performs Monthly Self-breast Exam? No [email or web address] Information no t available 06/18/2017 Do You Use Protection During Sex? No [email or web address] Information not available 06/18/2017 What Is Your Relationship Status? Information not available 06/18/2017 Do You Use Your Seat Belt Or Car Seat Routinely? Yes Information not available 11/27/2023 Seat Belts Used Routinely Yes [email or web address] Information not available 06/18/2017 Are You Sexually Active? Yes [email or web address] Information not available 06/18/2017 Do You Have Smoke And Carbon Monoxide Detectors In Your Home? Yes Information not available 11/27/2023 How Much Tobacco Do You Smoke? 1 PPD 1/2 Ppw, Only About 5 Sometimes More With Drinks Information not available 11/27/2023 General Stress Level Medium [email or web address] Information not available 06/18/2017 Do You Use Sunscreen Routinely? No Information not available 11/27/2023 Has Tobacco Cessation Counseling Been Provided? Yes Information not available 11/27/2023 On What Date Was Tobacco Cessation Counseling Provided? 08/12/2024 Information not available 08/12/2024 Sex: Female Functional Status Question Answer Note LastModified by Organizat ion Details LastModified Time Do you use any illicit or recreational drugs? No Information not available 11/27/2023 Do you or have you ever used any other forms of tobacco or nicotine? No Information not available 11/27/2023 What is your level of alcohol consumption? Occasional once weekly [email or web address] Information not available 06/18/2017 Are you currently employed? No [email or web address] Information not available 06/18/2017 Are you able to care for yourself? Yes Information not available 11/27/2023 What is your exercise level? Occasional [email or web address] Information not available 06/18/2017 Mental Status None recorded. Family History Relationship Description Onset Age of this Age Resolved Age Notes LastModified by Organization Details LastModified Time Father No current problems or disability Not available 11/2017 11:36:44 Father Hypertensive disorder [email or web address] Not available 2023 12:20:00 Mother No current problems or disability [email or web address] Not available 11/2017 11:36:44 Mother Disorder of thyroid gland [email or web address] Not available 2023 12:19:43 Mother Hypertensive disorder [email or web address] Not available 2023 12:20:00 Brother Hypercholest erolemia [email or web address] Not available 2023 12:20:33 Medical History Condition Response Other N High Blood Pressure N Breast Cancer N Kidney or Bladder Problems N Thyroid Problems N GI Problems N Depression N Blood Clots N Lung Disease N Acne N Breast Problem N Eating Disorder N Anemia N Anesthesia Complications N Headaches/Migraines N Ovarian Cancer N Diabetes N Anxiety Disorder N Muscle, Joint, or Bone Problems N Blood Transfusions N Seizures/Epilepsy N Polyps N Infertility N Acid Reflux (GERD) N Cancer N Abuse/Domestic Violence N Asthma Y Allergies Y Endometriosis N High Cholesterol N Hepatitis N Liver Disease N Heart Disease N Pre-Eclampsia N Osteoporosis N Gynecological History Statement/Question Response Abnormal Pap N Flow Heavy Date of LMP 08/09/2024 STIs/STDs N HPV Vaccine N Duration of Flow (days) 5 Age at Menarche 12 Current Control Method Tubal Ligat ion Age at First Child 33 Frequency of Cycle (Q days) 28 Sexually Active? Y Menses Monthly Y Date of Last Pap Smear 01/10/2014 Sexual Problems? N LMP Approximate Desired Control Method Sterilizati on Obstetrics History GPAL:G 2 P 2 0 0 2 Type Value Multiple Births 0 Full Term 2 Induced 0 Spontaneous 0 Premature 0 Living 2 Ectopics 0 Total 2 Past Encounters Encounter ID Performer Location Encounter Start Date Encounter Closed Date Diagnosis/Indication Diagnosis SNOMED-CT Code Diagnosis ICD10 Code Diagnosis Note [id number] [facility] [address] [place] [address] 10/16/2016 10:07:42 10/16/2016 17:43:23 Gynecologic examination 27859936 Z01.419 Fibrocysti c disease of breast 64720620 N60.19 Mammography abnormal 168 549460 R92.8 [id number] [facility] [address] [place] [address] 06/18/2017 11:13:49 06/18/2017 12:24:36 Gynecologic examination 89971831 Z01.419 Z11.51 Screening mammography 24 085912 Z12.31 [id number] Janusz Sorenson MD [facility] (CLINICAL INFORMATION SYSTEMS DIRECTOR) [address] [place] [address] 10/28/2017 11:53:11 10/28/2017 14:01:43 Abnormal uterine bleeding 9414105400 9100 N93.9 Deliveries by [id number] Female sterilization 608 18050 Z30.2 [id number] Conner Florence MD REPLACED BY [facility] [employer] [address] [place] [address] 11/27/2023 11:04:53 11/27/2023 12:20:15 Asthma [id number] J45.909 Asthma is stable. Refill albuterol sulfate HFA inhaler for as directed use Skin lesion [id number] L98 .9 Refer to dermatolog y for evaluation of skin lesion. We will also trial a very low-dose triamcinol one 0.1% steroid cream to apply to the area twice daily for 7-10 days Cholesterol screening 27 [id number] Z13.220 Fasting lipid panel due Diabetes m ellitus screening [id number] Z13.1 Screening A1c is due for diabetes risk assessment Thyroid di sorder screening [id number] Z13.29 Routine thyroid panel ordered Long-term drug therapy [id number] Z79.899 Routine CBC and CMP ordered Body mass index 25-29 - overweight 534425673 Z68.26 BMI is 26.5 [id number] Conner Florence MD REPLACED BY [facility] [employer] [address] [place] [phone] 08/12/2024 11:44:17 08/12/2024 12:21:41 Body mass index 25-29 - overweight 709311911 Z68.25 BMI is 25.5 Overweight 483116739 E66 .3 Asthma 752488144 J45.90 9 Asthma is stable. P.r.n. use of albuterol inhaler Cholesterol screening 27 5291850 Z13.220 Fasting lipid panel due Diabetes m ellitus screening 688078165 Z13.1 Screening A1c is due for diabetes risk assessment Thyroid di sorder screening 189688554 Z13.29 Routine thyroid panel ordered Long-term drug therapy 230986110 Z79.899 Routine CBC and CMP ordered Adult heal th examination 138774171 Z00.00 Annual wellness exam completed Family his tory of polyp of colon 723911924 Z83.719 Refer for colonoscop y screening Screening mammography 24 223537 Z12.31 Next mammogram ordered Onychomyco sis of toenails 434212576 B35.1 Trial of ciclopirox soln to use topically on the toenails Health Concerns Section Related Observation LastModified by Organization Detai ls LastModified Time None Recorded Concern Status LastModified by Organization Details LastModified Time None Recorded Advance Directives Directive N: Payers Encounter Date Sequence Insurance Name Policy Number Policy Mcdonald Covered Member ID Mcdonald Member ID Guarantor Name 06/18/2017 1 [employer] [id number] Cindy Sierra [id number] Cindy Sierra 10/28/2017 1 [employer] [id number] Cindy Sierra [id number] Cindy Sierra 11/27/2023 1 [place] [address] [place] [id number] iCndy Sierra 08/12/2024 1 [place] [address] [facility] [id number] Cindy Sierra Notes Date Note Type Note Provider Name and Address Organization Details Recorded Time 10/15/2016 text/html Annual GYNReport ed bypatient.Menstrual cycle:Normal menses Urinary symptoms:No hematuria; No incontinence Vulva:No genital lesion Vagina:Normal vaginal discharge Breast:No breast pain; No breast lump; No nipple discharge Current Contraception:Tubal ligation Sexual complaints:No sexual complaints; No pain during intercourse; Normal libido Menopausal Symptoms:No menopausal symptoms; Normal vaginal lubrication Psychological symptoms:No depression; No anxiety; No PMDD Preventive measures:Encourage self breast examination; Encourage regular exercise; Encourage no tobacco use; Followed with Q3 year pap smear and high risk HPV typing; Mammogram performed within the past year JULISA Fowler SINICK 10/17/2016 20:21:21 06/18/2017 text/html Annual GYNReport ed bypatient.History:n o gynecologic complaints Menstrual cycle:Normal menses Urinary symptoms:No hematuria; No incontinence Vulva:No genital lesion Vagina:Normal vaginal discharge Breast:No breast pain; No breast lump; No nipple discharge Current Contraception:Tubal ligation Sexual complaints:No sexual complaints; No pain during intercourse; Normal libido Menopausal Symptoms:No menopausal symptoms; Normal vaginal lubrication Psychological symptoms:No depression; No anxiety; No PMDD Preventive measures:Encourage self breast examination; Encourage regular exercise; Encourage no tobacco use; Encourage regular mammograms starting age 40; Followed with Q3 year pap smear and high risk HPV typing 41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 Janusz Sorenson elizabeth [facility] 06/18/2017 12:16:31 10/28/2017 text/html Annual GYNReport ed bypatient.Menstrual cycle:Bleeding lasts more than 7 days;Irregular cycle intervals Urinary symptoms:No hematuria; No incontinence Vulva:No genital lesion Vagina:Normal vaginal discharge Breast:No breast pain; No breast lump; No nipple discharge Current Contraception:Tubal ligation Sexual complaints:No sexual complaints; No pain during intercourse; Normal libido Menopausal Symptoms:No menopausal symptoms; Normal vaginal lubrication Psychological symptoms:No depression; No anxiety; No PMDD Preventive measures:Encourage self breast examination; Encourage regular exercise; Encourage no tobacco use; Encourage regular mammograms starting age 40; Followed with Q3 year pap smear and high risk HPV typing 41 yo Identical twin with prior c/s x2 and tubal sterilization presents for abnormal uterine bleeding Janusz Sorenson elizabeth, [facility] 10/28/2017 15:01:28 11/27/2023 text/html pt. states that she needs meds refilled, also has a spot in between in her breast states that it started off as a rash and it went away and the bump is still their, no pain/ no pus. It is very small but it is not resolving. Asthma is stable with no acute concerns. She just needs a refill on her albuterol inhaler SHEYLA Blanco Attn: Accounting[address] [place], [address], [facility] 12/10/2023 20:55:34 08/12/2024 text/html Patient is here for her annual wellness exam and routine lab orders.. Asthma is stable with no acute concerns. She does have complaint of some toenail fungus that she would like to have treatment for. Also due for a mammogram and a colonoscopy. She would like to have an updated colonoscopy because her twin sister had colon polyp SHEYLA Blanco Attn: Accounting[address] [facility], [place], [address], [facility] 09/05/2024 13:35:56 OBGyn Episode Ob Episode Information Episode Created Date Number of Fetuses Patient Bloodtype Patient rh Status Prepregnancy Weight lbs Domestic Partner Domestic Partner Phone Father Name Grain Shoveler Status 06/18/19 18 1 CLOSED Fetus Data First Name Last Name Admitted to NICU Weight (g) Sex Living Outcome Pediatric Complications Fetus ID Race Codes Race Delivery Type 3770.25 [id number] F Full Term [id number] Primary Avelino Calculation Initial Avelino Date Initial Exam Date Initial Exam Provider Initial Ultrasound Date Last Menstrual Period Date Ultra Sound Weeks Gestation 0 Eighteen To Twenty Week Avelino Update Ultra Sound Date Fundal Height At Umbil Quickening Date Ultra Sound Latest Weeks Gestation Final Avelino Confirmed By Final Avelino Confirmed Date Final Avelino Date Ultra Sound Latest Days Gestation 0 0 Menstrual History Last Menstrual Date Menses Monthly On Bcp Conception Prior Menses Frequency Hcg Plus Date Menarche Onset Age Delivery Information Delivery Date Delivery Type Labor Anesthesia Weeks Gestation Incision Type Labor Labor Length Hrs Delivered By Post Complications Tubal Sterilization Discharge Date Comments 0 Regional-Sp inal 40 false Discharge Information Feeding Method Contraceptive Method Maternal HG B and HCT Levels Ob Episode Information Episode Created Date Number of Fetuses Patient Bloodtype Patient rh Status Prepregnancy Weight lbs Domestic Partner Domestic Partner Phone Father Name Grain Shoveler Status 06/18/19 18 1 CLOSED Fetus Data First Name Last Name Admitted to NICU Weight (g) Sex Living Outcome Pediatric Complications Fetus ID Race Codes Race Delivery Type 3373.36 [id number] F Full Term [id number] Repeat Avelino Calculation Initial Avelino Date Initial Exam Date Initial Exam Provider Initial Ultrasound Date Last Menstrual Period Date Ultra Sound Weeks Gestation 0 Eighteen To Twenty Week Avelino Update Ultra Sound Date Fundal Height At Umbil Quickening Date Ultra Sound Latest Weeks Gestation Final Avelino Confirmed By Final Avelino Confirmed Date Final Avelino Date Ultra Sound Latest Days Gestation 0 0 Menstrual History Last Menstrual Date Menses Monthly On Bcp Conception Prior Menses Frequency Hcg Plus Date Menarche Onset Age Delivery Information Delivery Date Delivery Type Labor Anesthesia Weeks Gestation Incision Type Labor Labor Length Hrs Delivered By Post Complications Tubal Sterilization Discharge Date Comments 2 [facility]- inal 40 Discharge Information Feeding Method Contraceptive Method Maternal HG B and HCT Levels
--- OUTSIDE RECORDS SUMMARY | 2024-10-07 03:27 | XMS_ITS | Data Portability ---
Author Organization [facility] [employer], Main Office Address [address] [place] [address] Assessment No assessment recorded. Plan of Treatment Reminders Order Date Submit Date Provider Last Modified By Organization Details Last Modified Time Details Appointments None recorded. Lab None recorded. Referral None recorded. Procedures None recorded. Surgeries None recorded. Imaging None recorded. Medication Orders albuterol sulfate HFA 90 mcg/actuat ion aerosol inhaler 2022 023 [id number], [address] [facility], [place], [place], [id number], 3 13:11:38 Patient TargetsNo targets recorded. Patient InstructionsNo instructions recorded. Reason for Referral None Reported. Results Created Date Observation Date Name Description Value Unit Range Abnormal Flag Note LastModifiedBy Organization Detail LastModifiedTime 02/07/20 22 02/12/2022 OVA AND SHARITA ITES, CONC AND PERM SMEAR ova and parasites, conc and perm smear OVA AND SHARITA ITES, CONC AND PERM SMEAR Micro Numbe r: [id number] Test Statu s: Final Speci men Sourc e: Stool Speci men Quali ty: Adequ ate JOSIANE NTRAT ION 1: No ova or sharita ites seen TRICH IVAN 1: No ova or sharita ites seen Routi ne Ova and Sharita ite exam may not detec t some sharita ites that occas ional ly cause diarr heal illne ss. Crypt ospor idium Antig en and/o r Cyclo spora and Isosp ora Exam may be order ed to detec t these sharita ites. One negat chilango sampl e does not neces saril y rule out the prese nce of a sharita itic infec tion. For addit ional infor meg scott refer to https ://ed ati on.qu eli aihuishou. com/f aq/FA Q203 (This link is being provi ded for infor kyree vyas/ wilian hendersono ses only. ) Not Available [address] [address] [place], [address], 02/12/2022 20:10:02/07/20 22 02/12/2022 ESCHE GRANT A COLI O157, CULTU RE escherichia coli O157, culture ESCHE GRANT A COLI O157, CULTU RE Micro Numbe r: [id number] Test Statu s: Final Speci men Sourc e: Stool Speci men Quali ty: Adequ ate Resul t: No Esche grant a coli O157 isola constance NOTE: E. coli other than O157 may produ ce Shiga toxin . Not Available [address] [address] [place], [address], 02/12/2022 20:10:08 02/07/20 22 02/12/2022 SALMO MARIANELA AND SHIGE LLA, CULTU RE salmonella and shigella, culture SALMO MARIANELA AND SHIGE LLA, CULTU RE Micro Numbe r: [id number] Test Statu s: Final Speci men Sourc e: Stool Speci men Quali ty: Adequ ate Resul t: No Salmo marianela or Shige lla isola constance Not Available [address] [address] [place], [address], 02/12/2022 20:10:07 02/07/20 22 02/12/2022 GIARD IA AND CRYPT OSPOR IDIUM ANTIG EN PANEL cryptosporid ium antigen, EIA CRYPT OSPOR IDIUM ANTIG EN, EIA Micro Numbe r: [id number] Test Statu s: Final Speci men Sourc e: Stool Speci men Quali ty: Adequ ate Crypt ospor idium : Not Detec constance Refer ence Range : Not Detec constance NOTE: Due to inter mitte nt ijeoma ing, one negat chilango sampl e does not neces saril y rule out the prese nce of a sharita itic infec tion. Not Available [facility] [address] [address] [place], [address], 02/12/2022 20:10:07 02/07/20 22 02/12/2022 GIARD IA AND CRYPT OSPOR IDIUM ANTIG EN PANEL giardia Ag, EIA, stool GIARD IA AG, EIA, STOOL Micro Numbe r: [id number] Test Statu s: Final Speci men Sourc e: Stool Speci men Quali ty: Adequ ate Giard ia Resul t 1: Not Detec constance Refer ence Range : Not Detec constance NOTE: Due to inter mitte nt ijeoma ing, one negat chilango sampl e does not neces saril y rule out the prese nce of a sharita itic infec tion. Not Available [facility] [address] [address] [place], [address], 02/12/2022 20:10:07 02/07/20 22 02/12/2022 CLOST RIDIU M DIFFI CILE TOXIN B,QL REAL TIME PCR clostridium difficile toxinb,ql real time PCR not detect ed not detect ed normal This test is for use only with liqui d or soft stool s; perfo rmanc e rc cteri stics of other clini lori speci men types have not been estab lishe d. This assay was perfo rmed by [employer] pert( R) PCR. The perfo rmanc e rc cteri stics of this assay have been deter mined by [facility]. Perfo rmanc e rc cteri stics refer to the oscar tical perfo rmanc e of the test. For addit ional infor meg scott e refer to http: //madhu Shaver stDia gnost ics.c om/fa q/FAQ 136 (This link is being provi ded for infor kyree nal/e ducat ional purpo ses only. ) Not Available [facility] [address] [place], [address], 02/12/2022 20:10:02/07/20 22 02/12/2022 CBC (INCL UDES DIFF/ PLT) white blood cell count 7.4 thous and/u L 3.8-10 .8 normal Not Available [address], [address], 02/12/2022 20:10:02/07/20 22 02/12/2022 CBC (INCL UDES DIFF/ PLT) red blood cell count 3.85 tor on/uL 3.80-5 .10 normal Not Available [address], [address], 02/12/2022 20:10:02/07/20 22 02/12/2022 CBC (INCL UDES DIFF/ PLT) hemoglobin 13.1 g/dL 11.7-1 5.5 normal Not Available [address], [address], 02/12/2022 20:10:02/07/20 22 02/12/2022 CBC (INCL UDES DIFF/ PLT) hematocrit 37.9 % 35.0-4 5.0 normal Not Available [address], [address], 02/12/2022 20:10:02/07/20 22 02/12/2022 CBC (INCL UDES DIFF/ PLT) MCV 98.4 fL 80.0-1 00.0 normal Not Available [address], [address], 02/12/2022 20:10:02/07/20 22 02/12/2022 CBC (INCL UDES DIFF/ PLT) MCH 34.0 pg 27.0-3 3.0 high Not Available [address], [address], 02/12/2022 20:10:02/07/20 22 02/12/2022 CBC (INCL UDES DIFF/ PLT) MCHC 34.6 g/dL 32.0-3 6.0 normal Not Available [address], [address], 02/12/2022 20:10:02/07/20 22 02/12/2022 CBC (INCL UDES DIFF/ PLT) RDW 11.9 % 11.0-1 5.0 normal Not Available [address], [address], 02/12/2022 20:10:02/07/20 22 02/12/2022 CBC (INCL UDES DIFF/ PLT) platelet count 266 thous and/u L 140-40 0 normal Not Available [address], [address], 02/12/2022 20:10:02/07/20 22 02/12/2022 CBC (INCL UDES DIFF/ PLT) MPV 10.2 fL 7.5-12 .5 normal Not Available [address], [address], 02/12/2022 20:10:02/07/20 22 02/12/2022 CBC (INCL UDES DIFF/ PLT) absolute neutrophils 3878 cells /uL 1500-7 800 normal Not Available [address], [address], 02/12/2022 20:10:02/07/20 22 02/12/2022 CBC (INCL UDES DIFF/ PLT) absolute lymphocytes 2250 cells /uL 850-39 00 normal Not Available [address], [address], 02/12/2022 20:10:02/07/20 22 02/12/2022 CBC (INCL UDES DIFF/ PLT) absolute monocytes 651 cells /uL 200-95 0 normal Not Available [address], [address], 02/12/2022 20:10:06 02/07/20 22 02/12/2022 CBC (INCL UDES DIFF/ PLT) absolute eosinophils 533 cells /uL 15-500 high Not Available [address], [address], 02/12/2022 20:10:02/07/20 22 02/12/2022 CBC (INCL UDES DIFF/ PLT) absolute basophils 89 cells /uL 0-200 normal Not Available [address], [address], 02/12/2022 20:10:02/07/20 22 02/12/2022 CBC (INCL UDES DIFF/ PLT) neutrophils 52.4 % normal Not Available [facility] [address], [address], 02/12/2022 20:10:02/07/20 22 02/12/2022 CBC (INCL UDES DIFF/ PLT) lymphocytes 30.4 % normal Not Available [facility] [address], [address], 02/12/2022 20:10:06 02/07/20 22 02/12/2022 CBC (INCL UDES DIFF/ PLT) monocytes 8.8 % normal Not Available [facility] [address], [address], 02/12/2022 20:10:02/07/20 22 02/12/2022 CBC (INCL UDES DIFF/ PLT) eosinophils 7.2 % normal Not Available [facility] [address], [address], 02/12/2022 20:10:02/07/20 22 02/12/2022 CBC (INCL UDES DIFF/ PLT) basophils 1.2 % normal Not Available [facility] [address], [address], 02/12/2022 20:10:02/07/20 22 02/12/2022 CALPR OTECT IN, STOOL calprotectin , stool 11 mcg/g Refer ence Range : <50 Federica l 50-12 0 Borde rline >120 Somers constance Calpr otect in in Crohn 's disea se and ulcer ative colit is can be five to sever al thous and times above the refer ence popul ation (50 mcg/g or less) . Level s are usual ly 50 mcg/g or less in healt hy patie nts and with irrit able bowel syndr ome. Repea t testi ng in 4-6 weeks is sugge sted for borde rline value s. Not Available [facility] [address] [place], [address], 02/12/2022 20:10:02/07/20 22 02/12/2022 HEMOG LOBIN A1C hemoglobin A1C 5.0 %_of_ total _HGB <5.7 normal For the purpo se of scree candy for the prese nce of diabe gena: <5.7% Consi stent with the absen ce of diabe gena 5.7-6 .4% Consi stent with incre ased risk for diabe gena (pred iabet es) > or =6.5% Consi stent with diabe gena This assay resul t is consi stent with a decre ased risk of diabe gena. Curre ntly, no conse nsus exist meng parker use of hemog lobin A1c for diagn osis of diabe gena in child krystal. Accor ding to Ameri can Diabe gena Assoc iatio n (ADA) guide lines , hemog lobin A1c <7.0% repre sents optim al contr ol in non-p regna nt diabe tic patie nts. Diffe rent metri cs may apply to speci fic patie nt popul ation s. Stand ards of Medic al Care in Diabe gena(A DA). Not Available [facility] [address] [place], [address], 02/12/2022 20:10:02/07/20 22 02/12/2022 COMPR EHENS CHILANGO METAB OLIC PANEL glucose 89 mg/dL 65-99 normal Fasti ng refer ence inter kendell Not Available [address], [address], 02/12/2022 20:10:04 02/07/20 22 02/12/2022 COMPR EHENS CHILANGO METAB OLIC PANEL urea nitrogen (BUN) 10 mg/dL 7-25 normal Not Available [address], [address], 02/12/2022 20:10:02/07/20 22 02/12/2022 COMPR EHENS CHILANGO METAB OLIC PANEL creatinine 0.76 mg/dL 0.50-0 .99 normal Not Available [address], [address], 02/12/2022 20:10:04 02/07/20 22 02/12/2022 COMPR EHENS CHILANGO METAB OLIC PANEL eGFR 98 mL/mi n/1.7 3m2 > or = 60 normal The eGFR is based on the CKD-E PI 2020 sathish al. To calcu late the new eGFR from a previ ous Creat inine or Cysta tin C resul t, go to https ://delmar garg.yudi friedman/jay nunes s/ kdoqi /gfr% 5Fcal culat or Not Available [address], [address], 02/12/2022 20:10:04 02/07/20 22 02/12/2022 COMPR EHENS CHILANGO METAB OLIC PANEL BUN/creatini ne ratio not applic able (calc ) 6-22 Not Available [address], [address], 02/12/2022 20:10:04 02/07/20 22 02/12/2022 COMPR EHENS CHILANGO METAB OLIC PANEL sodium 140 mmol/ L 135-14 6 normal Not Available [address], [address], 02/12/2022 20:10:04 02/07/20 22 02/12/2022 COMPR EHENS CHILANGO METAB OLIC PANEL potassium 4.2 mmol/ L 3.5-5. 3 normal Not Available [address], [address], 02/12/2022 20:10:04 02/07/20 22 02/12/2022 COMPR EHENS CHILANGO METAB OLIC PANEL chloride 106 mmol/ L 98-110 normal Not Available [address], [address], 02/12/2022 20:10:04 02/07/20 22 02/12/2022 COMPR EHENS CHILANGO METAB OLIC PANEL carbon dioxide 28 mmol/ L 20-32 normal Not Available [address], [address], 02/12/2022 20:10:04 02/07/20 22 02/12/2022 COMPR EHENS CHILANGO METAB OLIC PANEL calcium 8.8 mg/dL 8.6-10 .2 normal Not Available [address], [address], 02/12/2022 20:10:04 02/07/20 22 02/12/2022 COMPR EHENS CHILANGO METAB OLIC PANEL protein, total 6.4 g/dL 6.1-8. 1 normal Not Available [address], [address], 02/12/2022 20:10:04 02/07/20 22 02/12/2022 COMPR EHENS CHILANGO METAB OLIC PANEL albumin 4.1 g/dL 3.6-5. 1 normal Not Available [address], [address], 02/12/2022 20:10:04 02/07/20 22 02/12/2022 COMPR EHENS CHILANGO METAB OLIC PANEL globulin 2.3 g/dL_ (calc ) 1.9-3. 7 normal Not Available [address], [address], 02/12/2022 20:10:04 02/07/20 22 02/12/2022 COMPR EHENS CHILANGO METAB OLIC PANEL albumin/glob ulin ratio 1.8 (calc ) 1.0-2. 5 normal Not Available [address], [address], 02/12/2022 20:10:04 02/07/20 22 02/12/2022 COMPR EHENS CHILANGO METAB OLIC PANEL bilirubin, total 0.5 mg/dL 0.2-1. 2 normal Not Available [address], [address], 02/12/2022 20:10:04 02/07/20 22 02/12/2022 COMPR EHENS CHILANGO METAB OLIC PANEL alkaline phosphatase 53 U/L 31-125 normal Not Available [address], [address], 02/12/2022 20:10:04 02/07/20 22 02/12/2022 COMPR EHENS CHILANGO METAB OLIC PANEL AST 16 U/L 10-35 normal Not Available [address], [address], 02/12/2022 20:10:04 02/07/20 22 02/12/2022 COMPR EHENS CHILANGO METAB OLIC PANEL ALT 12 U/L 6-29 normal Not Available [address], [address], 02/12/2022 20:10:04 02/07/20 22 02/12/2022 LIPID PANEL , STAND NURYS cholesterol, total 182 mg/dL <200 normal Not Available [address] [place], [address], 02/12/2022 20:10:03 02/07/20 22 02/12/2022 LIPID PANEL , STAND NURYS HDL cholesterol 82 mg/dL > or = 50 normal Not Available [address] [address] [place], [address], 02/12/2022 20:10:03 02/07/20 22 02/12/2022 LIPID PANEL , STAND NURYS triglyceride s 87 mg/dL <150 normal Not Available [facility] [address] [address] [place], [address], 02/12/2022 20:10:03 02/07/20 22 02/12/2022 LIPID PANEL , STAND NURYS LDL-choleste rol 82 mg/dL _(lori c) normal Refer ence range : <100 Maddie able range <100 mg/dL for prima ry preve ntion ; <70 mg/dL for patie nts with CHD or diabe tic patie nts with > or = 2 CHD risk facto rs. LDL-C is now calcu lated using the Sharyn n-Hop kins darcyu adrian n, which is a valid ated novel anjel velasco than the Fried britney equat ion in the estim ation of LDL-C . Sharyn linn SS et al. ALLISON. 2013; 310(1 9): 2061- 2068 (http ://ed ucati on.Rosa M arroyo 9facts. com/f aq/FA Q164) Not Available [address] [address] [place], [address], 02/12/2022 20:10:03 02/07/20 22 02/12/2022 LIPID PANEL , STAND NURYS chol/HDLC ratio 2.2 (calc ) <5.0 normal Not Available [address] [address] [place], [address], 02/12/2022 20:10:03 02/07/20 22 02/12/2022 LIPID PANEL , STAND NURYS non HDL cholesterol 100 mg/dL _(lori c) <130 normal For patie nts with diabe gena plus 1 major ASCVD risk facto r, treat ing to a non-H DL-C goal of <100 mg/dL (LDL- C of <70 mg/dL ) is xin morris optio n. Not Available [address], [address], 02/12/2022 20:10:03 02/07/20 22 02/12/2022 TSH+F REE T4 TSH 1.15 mIU/L normal Refer ence Range > or = 20 Years 0.40- 4.50 Pregn yeimi Range s First trime ster 0.26- 2.66 Secon d trime ster 0.55- 2.73 Third trime ster 0.43- 2.91 Not Available [address], [address], 02/12/2022 20:10:03 02/07/20 22 02/12/2022 TSH+F REE T4 T4, free 1.0 NG/dL 0.8-1. 8 normal Not Available [address], [address], 02/12/2022 20:10:03 07/09/19 23 07/10/2022 COMPR EHENS CHILANGO METAB OLIC PANEL glucose 87 mg/dL 65-99 normal Fasti ng refer ence inter kendell Not Available [address], [address], 07/10/2022 16:25:44 07/09/19 23 07/10/2022 COMPR EHENS CHILANGO METAB OLIC PANEL urea nitrogen (BUN) 11 mg/dL 7-25 normal Not Available [address], [address], 07/10/2022 16:25:44 07/09/19 23 07/10/2022 COMPR EHENS CHILANGO METAB OLIC PANEL creatinine 0.93 mg/dL 0.50-0 .99 normal Not Available [address], [address], 07/10/2022 16:25:44 07/09/19 23 07/10/2022 COMPR EHENS CHILANGO METAB OLIC PANEL eGFR 77 mL/mi n/1.7 3m2 > or = 60 normal The eGFR is based on the CKD-E PI 2020 equat ion. To calcu late the new eGFR from a previ ous Creat inine or Cysta tin C resul t, go to https ://delmar w.richard haidery.o elder/jay nunes s/ kdoqi /gfr% 5Fcal culat or Not Available [address], [address], 07/10/2022 16:25:44 07/09/19 23 07/10/2022 COMPR EHENS CHILANGO METAB OLIC PANEL BUN/creatini ne ratio NOT APPLIC ABLE (calc ) 6-22 Not Available [address], [address], 07/10/2022 16:25:44 07/09/19 23 07/10/2022 COMPR EHENS CHILANGO METAB OLIC PANEL sodium 138 mmol/ L 135-14 6 normal Not Available [address], [address], 07/10/2022 16:25:44 07/09/19 23 07/10/2022 COMPR EHENS CHILANGO METAB OLIC PANEL potassium 4.0 mmol/ L 3.5-5. 3 normal Not Available [address], [address], 07/10/2022 16:25:44 07/09/19 23 07/10/2022 COMPR EHENS CHILANGO METAB OLIC PANEL chloride 102 mmol/ L 98-110 normal Not Available [address], [address], 07/10/2022 16:25:44 07/09/19 23 07/10/2022 COMPR EHENS CHILANGO METAB OLIC PANEL carbon dioxide 25 mmol/ L 20-32 normal Not Available [address], [address], 07/10/2022 16:25:44 07/09/19 23 07/10/2022 COMPR EHENS CHILANGO METAB OLIC PANEL calcium 9.1 mg/dL 8.6-10 .2 normal Not Available [address], [address], 07/10/2022 16:25:44 07/09/19 23 07/10/2022 COMPR EHENS CHILANGO METAB OLIC PANEL protein, total 6.9 g/dL 6.1-8. 1 normal Not Available [address], [address], 07/10/2022 16:25:44 07/09/19 23 07/10/2022 COMPR EHENS CHILANGO METAB OLIC PANEL albumin 4.4 g/dL 3.6-5. 1 normal Not Available [address], [address], 07/10/2022 16:25:44 07/09/19 23 07/10/2022 COMPR EHENS CHILANGO METAB OLIC PANEL globulin 2.5 g/dL_ (calc ) 1.9-3. 7 normal Not Available [address], [address], 07/10/2022 16:25:44 07/09/19 23 07/10/2022 COMPR EHENS CHILANGO METAB OLIC PANEL albumin/glob ulin ratio 1.8 (calc ) 1.0-2. 5 normal Not Available [address], [address], 07/10/2022 16:25:44 07/09/19 23 07/10/2022 COMPR EHENS CHILANGO METAB OLIC PANEL bilirubin, total 0.8 mg/dL 0.2-1. 2 normal Not Available [address] [address] [place], [address], 07/10/2022 16:25:44 07/09/19 23 07/10/2022 COMPR EHENS CHILANGO METAB OLIC PANEL alkaline phosphatase 57 U/L 31-125 normal Not Available [facility] [employer] [address], [address], 07/10/2022 16:25:44 07/09/19 23 07/10/2022 COMPR EHENS CHILANGO METAB OLIC PANEL AST 13 U/L 10-35 normal Not Available [address], [address], 07/10/2022 16:25:44 07/09/19 23 07/10/2022 COMPR EHENS CHILANGO METAB OLIC PANEL ALT 9 U/L 6-29 normal Not Available [address] [address] [place], [address], 07/10/2022 16:25:44 07/09/19 23 07/10/2022 TSH W/REF BHARAT TO FT4 TSH w/reflex to FT4 1.02 mIU/L normal Refer ence Range > or = 20 Years 0.40- 4.50 Pregn yeimi Range s First trime ster 0.26- 2.66 Secon d trime ster 0.55- 2.73 Third trime ster 0.43- 2.91 Not Available [address] [address] [place], [address], 07/10/2022 16:25:45 07/09/1907/10/2022 THYRO ID PEROX IDASE AND THYRO GLOBU BRADEN ANTIB ODIES thyroglobuli n antibodies <1 IU/mL < or = 1 normal Not Available [facility] [address], [address], 07/10/2022 16:25:46 07/09/19 07/10/2022 THYRO ID PEROX IDASE AND THYRO GLOBU BRADEN ANTIB ODIES thyroid peroxidase antibodies 1 IU/mL <9 normal Not Available [address], [address], 07/10/2022 16:25:46 07/09/19 23 07/10/2022 CBC (INCL UDES DIFF/ PLT) white blood cell count 8.7 thous and/u L 3.8-10 .8 normal Not Available [address], [address], 07/10/2022 16:25:47 07/09/19 23 07/10/2022 CBC (INCL UDES DIFF/ PLT) red blood cell count 3.97 tor on/uL 3.80-5 .10 normal Not Available [address], [address], 07/10/2022 16:25:47 07/09/19 23 07/10/2022 CBC (INCL UDES DIFF/ PLT) hemoglobin 13.1 g/dL 11.7-1 5.5 normal Not Available [address], [address], 07/10/2022 16:25:47 07/09/19 23 07/10/2022 CBC (INCL UDES DIFF/ PLT) hematocrit 38.9 % 35.0-4 5.0 normal Not Available [address], [address], 07/10/2022 16:25:47 07/09/19 23 07/10/2022 CBC (INCL UDES DIFF/ PLT) MCV 98.0 fL 80.0-1 00.0 normal Not Available [address], [address], 07/10/2022 16:25:47 07/09/19 23 07/10/2022 CBC (INCL UDES DIFF/ PLT) MCH 33.0 pg 27.0-3 3.0 normal Not Available [address], [address], 07/10/2022 16:25:47 07/09/19 23 07/10/2022 CBC (INCL UDES DIFF/ PLT) MCHC 33.7 g/dL 32.0-3 6.0 normal Not Available [address], [address], 07/10/2022 16:25:47 07/09/19 23 07/10/2022 CBC (INCL UDES DIFF/ PLT) RDW 11.8 % 11.0-1 5.0 normal Not Available [address], [address], 07/10/2022 16:25:47 07/09/19 23 07/10/2022 CBC (INCL UDES DIFF/ PLT) platelet count 267 thous and/u L 140-40 0 normal Not Available [address], [address], 07/10/2022 16:25:47 07/09/19 23 07/10/2022 CBC (INCL UDES DIFF/ PLT) MPV 10.4 fL 7.5-12 .5 normal Not Available [address], [address], 07/10/2022 16:25:47 07/09/19 23 07/10/2022 CBC (INCL UDES DIFF/ PLT) absolute neutrophils 4837 cells /uL 1500-7 800 normal Not Available [facility] [address], [address], 07/10/2022 16:25:47 07/09/19 23 07/10/2022 CBC (INCL UDES DIFF/ PLT) absolute lymphocytes 2723 cells /uL 850-39 00 normal Not Available [address], [address], 07/10/2022 16:25:47 07/09/19 23 07/10/2022 CBC (INCL UDES DIFF/ PLT) absolute monocytes 774 cells /uL 200-95 0 normal Not Available [address], [address], 07/10/2022 16:25:47 07/09/19 23 07/10/2022 CBC (INCL UDES DIFF/ PLT) absolute eosinophils 296 cells /uL 15-500 normal Not Available [address], [address], 07/10/2022 16:25:47 07/09/19 23 07/10/2022 CBC (INCL UDES DIFF/ PLT) absolute basophils 70 cells /uL 0-200 normal Not Available [address], [address], 07/10/2022 16:25:47 07/09/19 23 07/10/2022 CBC (INCL UDES DIFF/ PLT) neutrophils 55.6 % normal Not Available [address], [address], 07/10/2022 16:25:47 07/09/19 23 07/10/2022 CBC (INCL UDES DIFF/ PLT) lymphocytes 31.3 % normal Not Available [address], [address], 07/10/2022 16:25:47 07/09/19 23 07/10/2022 CBC (INCL UDES DIFF/ PLT) monocytes 8.9 % normal Not Available [facility] [address], [address], 07/10/2022 16:25:47 07/09/19 23 07/10/2022 CBC (INCL UDES DIFF/ PLT) eosinophils 3.4 % normal Not Available [facility] [address], [address], 07/10/2022 16:25:47 07/09/19 23 07/10/2022 CBC (INCL UDES DIFF/ PLT) basophils 0.8 % normal Not Available [address], [address], 07/10/2022 16:25:47 07/09/19 23 07/10/2022 IRON AND TOTAL IRON CONNIE NG CAPAC ITY iron, total 197 mcg/d L 40-190 high Not Available [address], [address], 07/10/2022 16:25:48 07/09/19 23 07/10/2022 IRON AND TOTAL IRON CONNIE NG CAPAC ITY iron binding capacity 363 mcg/d L_(ca lc) 250-45 0 normal Not Available [address], [address], 07/10/2022 16:25:48 07/09/19 23 07/10/2022 IRON AND TOTAL IRON CONNIE NG CAPAC ITY % saturation 54 %_(ca lc) 16-45 high Not Available [address], [address], 07/10/2022 16:25:48 07/09/19 23 07/10/2022 HAWK TIN ferritin 39 NG/mL 16-232 normal Not Available [address], [address], 07/10/2022 16:25:49 07/09/19 23 07/10/2022 VITAM IN B12/F OLATE , SERUM PANEL vitamin B12 561 pg/mL 200-11 00 normal Not Available [address], [address], 07/10/2022 16:25:50 07/09/19 23 07/10/2022 VITAM IN B12/F OLATE , SERUM PANEL folate, serum 14.1 NG/mL normal Refer ence Range Low: <3.4 Borde rline : 3.4-5 .4 Federica l: >5.4 Not Available [facility] [address] , [place], [address], 07/10/2022 16:25:50 08/09/19 22 08/06/2021 XR, tibia + fibul a No observ ation record ed. [id number] [facility] [address], [place], [address], 07/10/2022 21:31:04 08/17/19 22 08/16/2021 MRI, lower extre mity, w/wo contr ast No observ ation record ed. [id number] [facility] [address], [place], [address], 07/10/2022 21:31:04 02/26/20 22 02/25/2022 diagn ostic colon oscop y (PROC ) No observ ation record ed. [id number] [facility] [address], [place], [address], 07/10/2022 21:31:04 05/23/19 24 05/22/2023 MAMMO , scree candy, digit al, bilat eral No observ ation record ed. [email or web address] [facility] [address], [place], [address], 05/23/2023 14:11:29 Result Notes None recorded. 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 Active 2009 Not Available [facility] 3 21:30:01 Diabetes mellitus screening Active 2021 Not Available [facility] 3 21:30:01 Asthma 111288582 Active 2021 Not Available [facility] 3 21:30:01 Disorder of soft tissue 74301235 Active 2021 Not Available [facility] 3 21:30:01 Irritable bowel syndrome with diarrhea 156563041 Active 2021 Not Available [facility] 3 21:30:01 [place] - lesion 442962163 Active 2019 Not Available [facility] 3 21:30:01 Gastroesop hageal reflux disease 533993367 Active 2021 Not Available [facility] 3 21:30:01 Screening mammograph y Active 2021 Not Available [facility] 3 21:30:02 Adult health examinatio n Active 2021 Not Available [facility] 3 21:30:02 Cholestero l screening Active 2021 Not Available [facility] 3 21:30:02 Screening for malignant neoplasm of colon Active 2021 Not Available [facility] 3 21:30:02 Disorder of soft tissue of lower limb 349455251 Active 2021 Not Available [facility] 3 21:30:02 Seasonal allergic rhinitis 202764535 Active 2016 Not Available [employer] 3 21:30:02 Bunion 290430820 Active 2019 Not Available [facility] 3 21:30:03 Ulcer 688520276 Active 2019 Not Available [facility] 3 21:30:03 Diarrhea 22571344 Active 2021 Not Available [facility] 3 21:30:03 Fatigue 65309914 Active 2022 Not Available [facility] 3 21:30:03 Bronchitis 09718271 Active 2022 Radhika johnson, [facility] 3 15:32:59 [place] of toe 04143169 Active 2022 Loco Roth, NICOLE [address] [facility] [place] [address], [place], [address] , [facility] 3 08:44:13 Pain of toe of left foot 4807722674424 08 Active 2022 Loco Roth DPM [address], [place], [address] , [employer] 3 08:44:17 Kevin toe 786189393 Active 2022 Loco Roth DPM [address], [address], [place], [address] , [employer] 3 08:44:38 Asthmatic bronchitis 169904115 Active 2022 SHEYLA Blanco [address], [address], [place], [address] , [employer] 3 13:11:19 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 Procedures Surgical History Date Name Laterality Status Provider Name and Address Organization Details Recorded Time 11/22/19 23 Callus Debridement, One completed Loco Roth DPM [address], [address], [place], [address], [employer] 12/09/2022 08:44:04 extraction of wisdom tooth completed Not Available [facility] 07/10/2022 21:28:58 Cholecystectomy completed Not Available [facility] 07/10/2022 21:28:58 Appendectomy completed Not Available [facility] 07/10/2022 21:28:58 ligation of bilateral fallopian tubes completed Not Available [facility] 07/10/2022 21:28:58 section completed Not Available [facility] 07/10/2022 21:28:58 section completed Not Available [facility] 07/10/2022 21:28:58 Imaging Results None recorded. Procedure Notes None recorded. Medical Equipment None Reported. Allergies Allergen ID Allergen Name Allergen Category Reaction Reaction Severity Criticality Documentation Date Start Date Code Code System Note Provider Name and Address Organization Details Recorded Time 99358 Canis lupus familiari s extract environme nt Not available Not available Not available 07/10/2022 78513 4 RxNorm Not Available [facility] 3 21:31:02 17862 cat dander environme nt Not available Not available Not available 07/10/2022 90860 UNK Not Available [facility] 3 21:31:02 50834 nickel environme nt Not available Not available Not available 11/21/2022 33616 29 RxNorm Radhika johnson [place] [facility] 3 15:32:07 Medications Name Sig Start Date Stop Date Status Note LastModified by Organization Details LastModified Time multivitami n tablet TK 1 T PO QD 05/24 completed Not Available Not Available Not Available azelastine 0.05 % eye drops INT 1 GTT IN OU BID 07/02 completed Not Available Not Available Not Available valacyclovi r 1 gram tablet TAKE 2 TABLETS BY MOUTH EVERY 12 HOURS FOR 1 DAY NEEDED FOR FLARE UP active Not Available Not Available No t Available hydrocortis one 1 % topical ointment APPLY A THIN LAYER TO THE AFFECTED AREA(S) BY TOPICAL ROUTE 2 TIMES PER DAY 07/02 completed Not Available Not Available Not Available ciprofloxac in 500 mg tablet TAKE 1 TABLET BY MOUTH EVERY 12 HOURS 07/02 completed Not Available Not Available Not Available terbinafine HCl 250 mg tablet TK 1 T PO QD 07/02 completed Not Available Not Available Not Available desloratadi ne 5 mg tablet Take one tab po qd 07/02 completed Not Available Not Available Not Available montelukast 10 mg tablet Take 1 tablet every day by oral route. active Not Available Not Available No t Available albuterol sulfate HFA 90 mcg/actuati on aerosol inhaler INHALE 2 PUFFS BY MOUTH EVERY 4 HOURS NEEDED active Not Available Not Available No t Available amoxicillin 875 mg-potassiu m clavulanate 125 mg tablet TAKE 1 TABLET BY MOUTH EVERY 12 HOURS active Not Available Not Available No t Available Chantix 1 mg tablet 05/24 completed Not Available Not Available Not Available calcium 600 mg (as carbonate)- vitamin D3 10 mcg (400 unit) tablet TK 1 T PO BID 05/24 completed Not Available Not Available Not Available Xyzal 5 mg tablet Take 1 tablet every day by oral route. 2020 active Not Available Not Available Not Avai lable Levine Formula HC 1 % topical cream Apply thin layer to affected area BID pin for 1 week 07/02 completed Not Available Not Available Not Available sodium,pota ssium,mag sulfates 17.5 gram-3.13 gram-1.6 gram oral soln MIX AND DRINK DIRECTED 11/21 completed Not Available Not Available Not Available Vitals Date Recorded Body mass index (BMI) Body height Oxygen saturation Oxygen saturation in Arterial blood by Pulse oximetry Heart rate Respiratory rate Body temperature Body weight Systolic blood pressure Diastolic blood pressure Provider Name and Address Organization Details Last Updated DateTime 2 25.8 kg/m2 165.1 cm 97 % 97 % 71 /min 16 /min 98.1 [degF] 10323.5 4 g 110 mm[Hg] 68 mm[Hg] Not Available [facility] 3 21:29:49 Date Recorded Body height Oxygen saturation Oxygen saturation in Arterial blood by Pulse oximetry Heart rate Body temperature Body weight Systolic blood pressure Diastolic blood pressure Provider Name and Address Organization Details Last Updated DateTime 3 165.1 cm 98 % 98 % 84 /min 97.6 [degF] 55829.8 2 g 118 mm[Hg] 78 mm[Hg] Not Available [facility] 3 21:29:49 Date Recorded Body height Body mass index (BMI) Body weight Provider Name and Address Organization Details Last Updated DateTime 11/21/2022 165.1 cm 25 kg/m2 08081.86 g Radhika Thompson [facility] [employer] [facility] 11/21/2022 15:31:49 Date Recorded Heart rate Respiratory rate Oxygen saturation Oxygen saturation in Arterial blood by Pulse oximetry Systolic blood pressure Diastolic blood pressure Provider Name and Address Organization Details Last Updated DateTime 3 65 /min 14 /min 99 % 99 % 120 mm[Hg] 72 mm[Hg] Carolyn Edwards [place] [employer] [facility] 3 15:32:23 Date Recorded Body height Oxygen saturation Oxygen saturation in Arterial blood by Pulse oximetry Heart rate Respiratory rate Body temperature Systolic blood pressure Diastolic blood pressure Provider Name and Address Organization Details Last Updated DateTime 2 165.1 cm 98 % 98 % 86 /min 16 /min 98.2 [degF] 110 mm[Hg] 70 mm[Hg] Not Available [facility] 3 21:29:49 Date Recorded Body height Provider Name an d Address Organization Details Last Updated DateTime 04/01/2023 165.1 cm ROWAN Osborn [facility] [employer] [facility] 04/01/2023 12:18:22 Date Recorded Body mass index (BMI) Body weight Heart rate Oxygen saturation Oxygen saturation in Arterial blood by Pulse oximetry Systolic blood pressure Diastolic blood pressure Provider Name and Address Organization Details Last Updated DateTime 3 26.1 kg/m2 76399 g 66 /min 97 % 97 % 118 mm[Hg] 70 mm[Hg] Debra Bartlett MA [facility] 3 12:45:45 Social History Question Answer Notes LastModified by Organizat ion Details LastModified Time Tobacco Smoking Status Current Some Day Smoker Not Available [facility] 07/10/2022 21:28:52 Do You Have An Advance Directive? No [id number] Information not available 07/10/2022 What Is Your Level Of Caffeine Consumption? Heavy [id number] 026 Information not available 07/10/2022 In The 14 Days Before Symptom Onset, Have You Had Close Contact With A Laboratory-confirm ed COVID-19 While That Case Was Ill? No [id number] 026 Information not available 07/10/2022 In The 14 Days Before Symptom Onset, Have You Had Close Contact With A Person Who Is Under Investigation For COVID-19 While That Person Was Ill? No [id number] 026 Information not available 07/10/2022 What Type Of Diet Are You Following? REGULAR [id number] 026 Information not available 07/10/2022 Have There Been Any Changes To Your Family Or Social Situation? No [id number] Information not available 07/10/2022 Are There Any Guns Present In Your Home? Yes [id number] 026 Information not available 07/10/2022 Do You Use Insect Repellent Routinely? No [id number].[id number] 026 Information not available 07/10/2022 Do You Have A Medical Power Of Pediatrics Teacher? No [id number] 026 Information not available 07/10/2022 What Is Your Relationship Status? [id number] 026 Information not available 07/10/2022 Do You Use Your Seat Belt Or Car Seat Routinely? Yes [id number] 026 Information not available 07/10/2022 Do You Have Smoke And Carbon Monoxide Detectors In Your Home? Yes [id number].[id number] 026 Information not available 07/10/2022 At What Age Did You Start Smoking Tobacco? 16 [id number] 026 Information not available 07/10/2022 Do You Use Sunscreen Routinely? No [id number].[id number] 026 Information not available 07/10/2022 Have You Recently Traveled Abroad? No [id number] 026 Information not available 07/10/2022 Do You Have Any Dietary Restrictions? No [id number].[id number] 026 Information not available 07/10/2022 Sex: Unknown Functional Status Question Answer Note LastModified by Organizat ion Details LastModified Time Do you use any illicit or recreational drugs? No [id number] Information not available 07/10/2022 Do you or have you ever used any other forms of tobacco or nicotine? No [id number].[id number] 026 Information not available 07/10/2022 What is your level of alcohol consumption? Moderate [id number].[id number] 026 Information not available 07/10/2022 Are you currently employed? Yes [email or web address] Information not available 03/31/2023 What is your occupation? [employer] MIGRATION.[id number] 026 Information not available 07/10/2022 What is your exercise level? Moderate [id number].[id number] 026 Information not available 07/10/2022 Mental Status None recorded. Family History Relationship Description Onset Age of this Age Resolved Age Notes LastModified by Organization Details LastModified Time Father No current problems or disability [id number] Not available 07/10/2022 21:29:01 Mother No current problems or disability [id number] [id number] Not available 07/10/2022 21:29:01 Unspecified Relation Cerebrovascu lar accident [employer] A [email or web address] Not available 11/21/2022 15:33:40 Unspecified Relation Arthritis [email or web address] Not available 023 15:33:48 Unspecified Relation Hypertensive disorder [email or web address] Not available 2022 15:33:59 Unspecified Relation Heart disease [email or web address] Not available 2022 15:34:09 Medical History Condition Response ULCERS Y ALLERGIES/HAYFEVER Y BOWEL PROBLEMS Y BACK / NECK PROBLEMS Y ASTHMA Y Gynecological History Statement/Question Response Abnormal Pap Y Current Control Method Tubal Ligat ion Sexually Active? Y Obstetrics History GPAL:G 0 P 0 0 0 0 Past Encounters Encounter ID Performer Location Encounter Start Date Encounter Closed Date Diagnosis/Indication Diagnosis SNOMED-CT Code Diagnosis ICD10 Code Diagnosis Note [id number] SHEYLA Blanco [facility] [address] [place] [address] 07/03/2021 00:00:00 07/08/2021 00:29:30 [id number] SHEYLA Blanco [facility] [address] [place] [address] 02/04/2022 00:00:00 02/05/2022 21:30:21 [id number] SHEYLA Blanco [facility] [address] [place] [address] 07/09/2022 00:00:00 07/09/2022 13:03:51 [id number] Loco Roth DPM [facility] [address] [place] [address] 11/21/2022 15:27:22 12/09/2022 15:17:00 Hammer toe 518611562 M20.42 reviewed treatment options in detaileduc ated on conditionR ecommend wide shoe gearOffloa ding options reviewed with the patientpat ient defers surgery at this timeIf continues to be problemati c may require surgical correction of toefollow- up as needed [place] of toe 75102877 L84 debrided without incidentre viewed treatment optionspat ieefrain elects to continue with conservati ve therapyfol low-up as needed Pain of to e of left foot [id number] 49972 M79.675 5th toe as above [id number] SHEYLA Blanco [facility] [place] [address] [place] [address] 04/01/2023 12:15:49 04/01/2023 13:54:48 Asthmatic bronchitis 446767015 J45.909 refill on albuterol needed. Melanocytic nevus 915028 001 D22.9 Dermatolog y local options given to patient to schedule for evaluation of nevus and removal. Health Concerns Section Related Observation LastModified by Organization Detai ls LastModified Time None Recorded Concern Status LastModified by Organization Details LastModified Time None Recorded Advance Directives Directive N: Payers Encounter Date Sequence Insurance Name Policy Number Policy Mcdonald Covered Member ID Mcdonald Member ID Guarantor Name 11/21/2022 1 [place] 105 Tariq Sierra [id number] Cindy Randall 04/01/2023 1 [place] 105 Tariq Youngman [id number] Cindy Randall Notes Date Note Type Note Provider Name and Address Organization Details Recorded Time 2 text/html Asthma F/UReported bypatient.Quality:well-con trolled with antiasthmatics Severity:able to sleep during episode; does not interfere with daily activities Duration:history of asthma for years Onset/Timing:chronic Status:improving Modifying Factors:avoidance of triggers; short-acting beta agonist Associated Symptoms:no cough; no shortness of breathGeneric HPI TemplateReported bypatient.Notes:Pt is here for her wellness. No chronic problems/meds. She doesnt have any complaints today. Not Available [facility] [employer] 07/08/2021 00:29:30 2 text/html DiarrheaReported bypatient.Quality:worsenin g; frequent;watery Duration:present for 2-4 weeks Onset/Timing:no nocturnal symptoms; 4-10 times a day;worse with meals Context:no one else with similar symptoms; no recent camping; no recent picnic; no possible food sources; no recent travel Alleviating Factors:peptobismal Aggravating Factors:eating Associated Symptoms:no excess gas; no fever; no rash; no joint pain; no weight loss; no vomiting; no heartburn; no blood in stool; no mucus in stool; no black or tarry stools; no weakness; no nutrient deficiency;abdominal pain;nausea;cramping;bloat ing Not Available [employer] 02/05/2022 21:30:21 3 text/html Asthma F/UReported bypatient.Quality:well-con trolled with antiasthmatics Severity:able to sleep during episode; does not interfere with daily activities Duration:history of asthma for years Onset/Timing:chronic Status:improving Modifying Factors:avoidance of triggers; short-acting beta agonist Associated Symptoms:no cough; no shortness of breathFatigueReported bypatient.Status:chronic Quality:generalized Severity:normal sleep patterns; normal exercise habits; normal activity Duration:constant Timing:still the same Context:symptoms do not improve when at home versus on the job Modifying Factors:no new stressors in life; taking vitamins Associated Symptoms:no depression; no alcohol consumption; no anxiety; no sleep disturbances; normal sleep; no weight loss; no weight gain; no joint pain; no SOB; no dizziness; no joint pain; no headache; no exertional fatigue; no tender, swollen glands; no fever Not Available [facility] [employer] 07/09/2022 13:03:51 3 text/html . Patient is a 47 old female who presents to the office with complaints of a painful corn to the 5th toe. Patient states that when she wears certain shoe gear she has more pain. Patient states the pain is 5/10 and describes it as aching in nature. Patient states she did use medicated corn pads which did cause a infection. Patient states that it has since resolved and she is no longer having any infection or open wounds to the toe. Patient denies any other pedal complaints. Loco Roth, NICOLE [address] [facility] [facility] [address] [address], [place], [address], [place] [employer] 12/09/2022 08:45:47 3 text/html Generic HPI TemplateReported bypatient.Notes:Pt is here for a mole change on left neck region, also a skin tag nearby SHEYLA Blanco [address] [facility], [facility] [address], [place], [address], [employer] 04/03/2023 21:51:57 OBGyn Episode No OBEpisode recorded.
[2024-10-07 12:49] VITALS: BP 104/67; PULSE 68; RESP 16; TEMP 37; O2SAT 98
[2024-10-07 12:50] VITALS: BMI 25.4
[2024-10-07 12:54] LABS: BEDSIDEPREGUCG Negative (Negative)
--- NOTE | 2024-10-07 13:01 | WPDANESEPPF ---
Anes - Initial Pre Proc Eval Procedure: Operation Date: 10/07/24 13:30 Proposed Procedures p Colonoscopy - Musa Edwards MD Date/Time: 10/07/24 13:01 Surgeon: Musa Edwards MD Pre Op Diagnosis: Family history of malignant neoplasm of digestive Patient Data Age: 48 Gender: F Height: 1.65 m Weight: 69.2 kg Last Vital Signs Temp 98.6 F 10/07/24 12:49 Pulse 68 10/07/24 12:49 Resp 16 10/07/24 12:49 BP 104/67 10/07/24 12:49 Pulse Ox 98 10/07/24 12:49 O2 Del Method Room Air 10/07/24 12:49 Allergies Allergy/AdvReac Type Severity Reaction Status Date / Time cat dander Allergy Unknown Unknown Verified 10/07/24 12:46 dog dander Allergy Unknown Unknown Verified 10/07/24 12:46 nickel Allergy Unknown Unknown Verified 10/07/24 12:46 pollen extracts Allergy Unknown Unknown Verified 10/07/24 12:46 Home Medications ?Medication ?Instructions ?Recorded ?Confirmed ?Type levocetirizine 5 mg tablet (Xyzal) 5 mg PO DAILY 09/17/21 10/07/24 History valacyclovir 1 gram tablet 1,000 mg PO DAILY PRN Cold Sores 02/13/22 09/28/24 History albuterol sulfate 90 mcg/actuation 1 inh inhalation Q8H PRN shortness 09/28/24 09/28/24 History aerosol inhaler of breath or wheezing Laboratory Tests 10/07/24 12:49 POC Urine HCG, Qual Negative (Negative) Patient hx anesthesia problems: none Family hx anesthesia problems: none Results Review: All pre-operative results and documents have been reviewed as part of the pre-operative evaluation. [facility] Past Medical History Medical History Asthma Surgical History Surgical History History of appendectomy History of delivery History of cholecystectomy Family History Family History Father Hypertension Grandparent Acute myocardial infarction Cerebrovascular accident Social History Social History Years smoked: 20 Smoking status: Current every day smoker Tobacco type: cigarettes Alcohol intake: current Alcohol use details: 1 bottle of wine per week Substance use: never Substance use type: does not use Living arrangements: with family Occupation/Education: unemployed Spiritual care concerns: No Anes - Eval Final PreProcedure Day of Procedure 10/07/24 13:01 Patient weight: normal Heart: regular rate and rhythm Lungs: clear to auscultation Airway: Mallampati scale class II Neurological: alert and oriented Last oral intake: >/= 8 hours ASA classification: II Emergent: no Anesthetic plan: proceed Anesthesia type and monitoring: general GIVS and standard monitoring Results Review: All pre-operative results and documents have been reviewed as part of the pre-operative evaluation. Informed Consent: The patient's anesthetic plan and its attendant risks and benefits were discussed with the patient/family/POA. Questions were solicited and answers provided to the satisfaction of the patient/family/POA.
--- NOTE | 2024-10-07 13:02 | WPDANESEPPF ---
Anes - Initial Pre Proc Eval Procedure: Operation Date: 10/07/24 13:30 Proposed Procedures p Colonoscopy - Musa Edwards MD Date/Time: 10/07/24 13:02 Surgeon: Musa Edwards MD Pre Op Diagnosis: Family history of malignant neoplasm of digestive Patient Data Age: 48 Gender: F Height: 1.65 m Weight: 69.2 kg Last Vital Signs Temp 98.6 F 10/07/24 12:49 Pulse 68 10/07/24 12:49 Resp 16 10/07/24 12:49 BP 104/67 10/07/24 12:49 Pulse Ox 98 10/07/24 12:49 O2 Del Method Room Air 10/07/24 12:49 Allergies Allergy/AdvReac Type Severity Reaction Status Date / Time cat dander Allergy Unknown Unknown Verified 10/07/24 12:46 dog dander Allergy Unknown Unknown Verified 10/07/24 12:46 nickel Allergy Unknown Unknown Verified 10/07/24 12:46 pollen extracts Allergy Unknown Unknown Verified 10/07/24 12:46 Home Medications ?Medication ?Instructions ?Recorded ?Confirmed ?Type levocetirizine 5 mg tablet (Xyzal) 5 mg PO DAILY 09/17/21 10/07/24 History valacyclovir 1 gram tablet 1,000 mg PO DAILY PRN Cold Sores 02/13/22 09/28/24 History albuterol sulfate 90 mcg/actuation 1 inh inhalation Q8H PRN shortness 09/28/24 09/28/24 History aerosol inhaler of breath or wheezing Laboratory Tests 10/07/24 12:49 POC Urine HCG, Qual Negative (Negative) Patient hx anesthesia problems: none Family hx anesthesia problems: none Results Review: All pre-operative results and documents have been reviewed as part of the pre-operative evaluation. [facility] Past Medical History Medical History Asthma Surgical History Surgical History History of appendectomy History of delivery History of cholecystectomy Family History Family History Father Hypertension Grandparent Acute myocardial infarction Cerebrovascular accident Social History Social History Years smoked: 20 Smoking status: Current every day smoker Tobacco type: cigarettes Alcohol intake: current Alcohol use details: 1 bottle of wine per week Substance use: never Substance use type: does not use Living arrangements: with family Occupation/Education: unemployed Spiritual care concerns: No Anes - Eval Final PreProcedure Day of Procedure 10/07/24 13:02 Patient weight: normal Heart: regular rate and rhythm Lungs: clear to auscultation Neurological: alert and oriented Last oral intake: >/= 8 hours Emergent: no Anesthetic plan: proceed Results Review: All pre-operative results and documents have been reviewed as part of the pre-operative evaluation. Informed Consent: The patient's anesthetic plan and its attendant risks and benefits were discussed with the patient/family/POA. Questions were solicited and answers provided to the satisfaction of the patient/family/POA.
[2024-10-07] MEDS: LACTATED RINGERS 1,000 ML 150 ML IV CONT (13:04)
--- NOTE | 2024-10-07 13:11 | P.HP_ITS ---
History of Present Illness History of Present Illness Consent: Risks, benefits, and alternatives have been discussed and questions answered. Patient agrees to proceed with procedure. Chief complaint: Family history of malignant neoplasm of digestive Narrative: Cindy Sierra is a 48 year old female here for colonoscopy, last one 2021, twin sister had large polyps recently Review of Systems Review of Systems: All systems reviewed & are unremarkable except as noted in HPI and below PMFSH Past Medical History Medical History (Updated 10/07/24 @ 13:12 by Musa Edwards MD) Colon cancer screening Asthma Surgical History Surgical History History of cholecystectomy History of appendectomy History of delivery Family History Family History Father Hypertension Grandparent Acute myocardial infarction Cerebrovascular accident Social History Social History Years smoked: 20 Smoking status: Current every day smoker Tobacco type: cigarettes Alcohol intake: current Alcohol use details: 1 bottle of wine per week Substance use: never Substance use type: does not use Living arrangements: with family Occupation/Education: unemployed Spiritual care concerns: No Meds Home Medications and Allergies Home Medications ?Medication ?Instructions ?Recorded ?Confirmed ?Type levocetirizine 5 mg tablet (Xyzal) 5 mg PO DAILY 09/17/21 10/07/24 History valacyclovir 1 gram tablet 1,000 mg PO DAILY PRN Cold Sores 02/13/22 09/28/24 H istory albuterol sulfate 90 mcg/actuation 1 inh inhalation Q8H PRN shortness 09/28/24 09/28/24 History aerosol inhaler of breath or wheezing Allergies Allergy/AdvReac Type Severity Reaction Status Date / Time cat dander Allergy Unknown Unknown Verified 10/07/24 12:46 dog dander Allergy Unknown Unknown Verified 10/07/24 12:46 nickel Allergy Unknown Unknown Verified 10/07/24 12:46 pollen extracts Allergy Unknown Unknown Verified 10/07/24 12:46 Vital Signs Vital Signs - 24 hr 10/07/24 12:49 Temperature 98.6 F Pulse Rate 68 Respiratory Rate 16 Blood Pressure 104/67 Pulse Oximetry 98 Oxygen Delivery Room Air Exam Const: General: comfortable and no acute distress HENMT: Face/Nose/Sinus: Normal nares present Eyes: General: appearance normal, both eyes and all related structures Neck: Neck: no JVD Resp: Auscultation: clear to auscultation bilaterally Cardio: Rate: regular rate Rhythm: regular rhythm GI: Inspection: non-distended GI Palp: Yes Soft to palpation Skin: General skin exam: normal color Neuro: General: gait normal Speech: normal speech Extrem: General: normal to inspection Psych: Mental Status: mental status grossly normal Assessment and Plan Assessment and plan (1) Colon cancer screening: Code(s): Z12.11 - Encounter for screening for malignant neoplasm of colon Status: Acute Assessment and Plan: colonoscopy
--- NOTE | 2024-10-07 13:32 | S_PTH ---
PATIENT: Cindy Sierra LOC: [place] [facility]#:[id number] AGE/SX: 48/F ROOM: RE10/07/[address]: Musa Edwards MD : 1975 BED: DIS: 10/07/2024 SPEC #: [id number] RECD: 10/07/24 14:16 STATUS: [place] #: [id number] ELIZABETH: 10/07/24 13:[address]: Musa Edwards DEPT: [facility] Surgical RECD BY: Anamaria Palumbo ENTERED: 10/07/24 14:16 SP TYPE: Surgical OTHR DR: Domenica Titus, PAVinicio Tissues: A - Colon Polypectomy Procedures: Hematoxylin and Eosin Stain Gross and Microscopic Level 4
[2024-10-07 13:36] VITALS: BP 105/46; PULSE 68; RESP 20; O2SAT 100
[2024-10-07 13:46] VITALS: BP 106/50; PULSE 67; RESP 19; O2SAT 100
[2024-10-07 13:56] VITALS: BP 106/67; PULSE 63; RESP 13; O2SAT 100
== END 2024-10-07 14:06 | disposition home or self-care (01) ==
PROVIDERS: Anesthesiology; PCP Physician Assistant; Referring Provider Physician Assistant; Visit Provider Internal Medicine Gastroenterology
PROC: 0DJD8ZZ Inspection of Lower Intestinal Tract, Via Natural or Artificial Opening Endoscopic (ICD-10-PCS; CPT 45378; principal; 2024-10-07 13:30)
DX: Z12.11 Encounter for screening for malignant neoplasm of colon (principal); K63.5 Polyp of colon; J45.909 Unspecified asthma, uncomplicated; F17.210 Nicotine dependence, cigarettes, uncomplicated; Z79.51 Long term (current) use of inhaled steroids; Z98.890 Other specified postprocedural states; Z90.49 Acquired absence of other specified parts of digestive tract; Z83.719 Family history of colon polyps, unspecified; Z80.0 Family history of malignant neoplasm of digestive organs; Z82.49 Family history of ischemic heart disease and other diseases of the circulatory system
CPT/HCPCS: 45385; 88305; J2003; J2704; J7120

== ENCOUNTER 2024-12-17 08:50 | Outpatient (CLI) | payer BC, SELFPAY ==
--- NOTE | ~2024-12-17 | MMUS_ITS ---
EXAMINATION: MM diagnostic josette BI w jos, US breast BI limited INDICATION: 49-year old female; BI-RADS 0, callback from screening to evaluate bilateral breast disha s. COMPARISON: 09/27/2024. TECHNIQUE: Digital breast tomosynthesis True lateral and spot compression CC and MLO views of BILATER AL breasts were obtained with computer-aided detection to assist in interpretation of the study. FINDINGS: The breasts are heterogeneously dense, which may obscure small masses. A mass with partially obscured margins persists in the superior central right breast. A mass with par tially obscured margins persists in the superior lateral, middle third in the left breast. Ultrasound was performed for further evaluation. BILATERAL BREAST ULTRASOUND FINDINGS: Targeted evaluation of the areas of concern was completed. A conglomeration of several simple cysts are seen in the right breast at 12:00, 2 cm from the nipple with the largest measuring 0.7 cm in diameter. These cysts correlates to the mammographic finding. There is a 0.8 cm anechoic mass at 1:00 location 1 cm from the nipple in the LEFT breast that correla gena to the area of Mammographic finding. IMPRESSION: Benign BILATERAL breast cysts correlates to mammographic finding. No further investigation necessary. RECOMMENDATION: Annual screening bilateral mammography in 12 months. BI-RADS 2, BENIGN Reviewed, dictated and finalized at location B. IMPRESSION: Benign BILATERAL breast cysts correlates to mammographic finding. No further in vestigation necessary. RECOMMENDATION: Annual screening bilateral mammography in 12 months. BI-RADS 2, BENIGN
--- OUTSIDE RECORDS SUMMARY | 2024-12-17 08:59 | XMS_ITS | Clinical Summary ---
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 Name Role Phone Unavailable Primary Care Provider Unavailabl e Social History Tobacco Use Types Packs/Day Years Used Date Smoking Tobacco: Never Assessed Comments Unknown Sex and Gender Information Value Date Recorded Sex Assigned at Not on file Legal Sex Female 8:23 PM CDT Gender Identity Not on file Sexual Orientation Not on file Plan of Treatment Health Maintenance Due Date Last Done Comments Cervical Cancer Screening Pa p Smear (Age 30 to 64) Every 3 Years 1975 Colorectal Cancer Screening Colonoscopy (10 Years) 1975 Annual Physical 10/25/1978 Hepatitis C 10/25/1993 DTaP, Tdap and Td Vaccines ( 1 - Tdap) 10/25/1994 Hepatitis B Vaccines (1 of 3 - 19+ 3-dose series) 10/25/1994 Cervical Cancer Screening Pa p with HPV Testing (Age 30 to 64) Every 5 Years 10/25/2005 Cervical Cancer Screening with HPV 10/25/2005 Mammogram Screening 2015 COVID-19 Vaccine (2023-2 5 season) 2024 Meningococcal B Vaccine Aged Out No l onger eligible based on patient's age to complete this topic Meningococcal Vaccine Aged Out No orin shola eligible based on patient's age to complete this topic Pneumococcal Vaccine: Pediat rics (0 to 5 Years) and At-Risk Patients (6 to 49 Years) Aged Out No longer eligible b ased on patient's age to complete this topic RSV Immunizations Under 20 Months Aged Out No longer eligible based on patient's age to complete this topic
== END 2024-12-17 08:51 | disposition home or self-care (01) ==
LOC: ANHIMG 08:55
PROVIDERS: PCP Physician Assistant; Visit Provider Physician Assistant
DX: R92.8 Other abnormal and inconclusive findings on diagnostic imaging of breast (principal)
CPT/HCPCS: 76642; 77062; 77066; G0279